=== PATIENT | female | born 1945 | race African-American/Black ===

== ENCOUNTER 2017-01-08 13:08 | Inpatient (IN) | payer MEDICARE, OTHER ==
[~2017-01-08] VITALS: Ht 172.7 cm; Wt 58.7 kg
[~2017-01-08 13:08] MED LIST: ALBU8.5H3 IH; AMIO200T PO; ATOR20TA86 PO; BUME1TAB30 PO; CARV3 PO; CHOL400T33 PO; FERR-89 PO; VALS80TA2 PO; WARF2 PO
[2017-01-08] MEDS ORDERED: BUMETANIDE 0.25 MG/ML 10 ML VIAL IVP ONE (13:45)
[2017-01-08 13:56] LABS: BASOPHILS % (AUTO) 0.1 % (0.0-2.0); EOSINOPHILS % (AUTO) 12.7 % (1.0-6.0); HEMATOCRIT 41.1 % (36-46); HEMOGLOBIN 12.9 g/dL (12.0-16.0); LYMPHOCYTES # (AUTO) 0.6 K/uL (1.0-4.8); LYMPHOCYTES % (AUTO) 8.9 % (22.0-44.0); MEAN CORPUSCULAR HEMOGLOBIN 28.1 pg (26.0-34.0); MEAN CORPUSCULAR HGB CONC 31.4 G/dL (31.0-37.0); MEAN CORPUSCULAR VOLUME 90 fL (80-100); MONOCYTES # (AUTO) 0.3 K/uL (0.1-1.0); MONOCYTES % (AUTO) 3.7 % (2.0-9.0); NEUTROPHILS # (AUTO) 5.2 K/uL (1.8-7.7); NEUTROPHILS % (AUTO) 74.6 % (40.0-70.0); PLATELET COUNT (AUTO) 164 K/uL (150-450); RED BLOOD CELL COUNT(AUTO) 4.59 MIL/uL (4.00-5.20); RED CELL DISTRIBUTION WIDTH 16.4 % (11.5-14.5)
[2017-01-08 14:06] LABS: CALCIUM, TOTAL 10.1 mg/dL (8.8-10.5); CREATININE 2.56 mg/dL (0.60-1.30)
[2017-01-08 14:12] LABS: ALBUMIN 3.5 g/dL (3.4-5.0); BILIRUBIN,TOTAL 0.6 mg/dL (0.1-1.0); TOTAL PROTEIN, SERUM 8.2 g/dL (6.4-8.2)
[2017-01-08 15:36] LABS: ADD UA MICROSCOPIC YES; APPEARANCE,URINE CLEAR (CLEAR); GLUCOSE, URINE (UA) NEGATIVE (NEGATIVE); KETONES,URINE NEGATIVE (NEGATIVE); LEUKOCYTE ESTERASE ,URINE NEGATIVE (NEGATIVE); OCCULT BLOOD,URINE SMALL (NEGATIVE); PH,URINE 5.5 (5.0-8.0); PROTEIN,URINE SEE CONFIRM (NEGATIVE)
[2017-01-08 15:39] LABS: SULFOSALICYLIC ACID,URINE 3+ (Negative)
[2017-01-08 15:40] LABS: SQUAMOUS EPITHELIAL CELL,UR Few /LPF (None Seen); WBC,URINE 0-2 /HPF (0-5)
[2017-01-08] MEDS ORDERED: ONDANSETRON HCL 4 MG/2 ML VIAL IVP PRN (15:45)
[2017-01-08] MEDS ORDERED: IPRATROPIUM BROMIDE 0.5 MG/2.5 ML NEB SOLUTION NEB ONE (15:45)
[2017-01-08] MEDS ORDERED: ACETAMINOPHEN 325 MG TABLET PO PRN ×2 (15:45→18:30)
[2017-01-08] MEDS ORDERED: ALBUTEROL SULFATE 2.5 MG/0.5 ML NEB SOLUTION NEB ONE (15:45)
[2017-01-08] MEDS ORDERED: 0.9% SODIUM CHLORIDE 10 ML SYRINGE IVP PRN (15:45)
[2017-01-08] MEDS ORDERED: OxyCODONE HCL/ACETAMINOPHEN 5-325 MG TABLET PO PRN (18:30)
[2017-01-08] MEDS ORDERED: ZOLPIDEM TARTRATE 5 MG TABLET PO PRN (18:30)
[2017-01-08 20:41] VITALS: BP 139/86
[2017-01-08] MEDS ORDERED: ALBUTEROL SULFATE HFA 90 MCG/PUFF 8 GM INHALER IH PRN (22:00)
[2017-01-08] MEDS ORDERED: INFLUENZA VIRUS VACCINE QVS 2016-17 (3YR+)/PF 60 MCG/0.5 ML SYRINGE IM ONE (22:15)
[2017-01-08 23:44] VITALS: BP 132/85
[2017-01-08] MEDS: HEPARIN SODIUM,PORCINE 5,000 UNITS/ML VIAL SQ SCH (23:59)
[2017-01-09 04:24] VITALS: BP 142/82
[2017-01-09 07:41] VITALS: BP 140/77
[2017-01-09] MEDS: VALSARTAN 80 MG TABLET PO SCH (09:56)
[2017-01-09] MEDS: AMIODARONE HCL 200 MG TABLET PO SCH (09:57)
[2017-01-09] MEDS: CHOLECALCIFEROL (VIT D3) 400 UNITS TABLET PO SCH (09:57)
[2017-01-09] MEDS: CARVEDILOL 3.125 MG TABLET PO SCH ×2 (09:57→21:16)
[2017-01-09] MEDS: PANTOPRAZOLE SODIUM 40 MG DR TABLET PO SCH (09:57)
[2017-01-09] MEDS: HEPARIN SODIUM,PORCINE 5,000 UNITS/ML VIAL SQ SCH ×3 (09:57→23:58)
[2017-01-09 11:12] VITALS: BP 124/70
[2017-01-09 15:51] VITALS: BP 109/60
[2017-01-09] MEDS: BUMETANIDE 0.25 MG/ML 4 ML VIAL IVP SCH ×2 (16:14→21:16)
[2017-01-09 18:00] VITALS: BP 139/77
[2017-01-09 19:40] VITALS: BP 133/87
[2017-01-09] MEDS: ATORVASTATIN CALCIUM 20 MG TABLET PO SCH (21:16)
[2017-01-10] VITALS (7 sets, daily range): BP systolic 106–142; BP diastolic 68–84
[2017-01-10 07:34] LABS: BASOPHILS # (AUTO) 0.02 K/uL (0.00-0.20); BASOPHILS % (AUTO) 0.4 % (0.0-2.0); EOSINOPHILS # (AUTO) 0.51 K/uL (0.00-0.70); EOSINOPHILS % (AUTO) 8.59 % (1.0-6.0); HEMATOCRIT 35.3 % (36-46); HEMOGLOBIN 11.4 g/dL (12.0-16.0); LYMPHOCYTES # (AUTO) 0.5 K/uL (1.0-4.8); LYMPHOCYTES % (AUTO) 7.6 % (22.0-44.0); MEAN CORPUSCULAR HEMOGLOBIN 29.1 pg (26.0-34.0); MEAN CORPUSCULAR HGB CONC 32.2 G/dL (31.0-37.0); MEAN CORPUSCULAR VOLUME 90 fL (80-100); MONOCYTES # (AUTO) 0.3 K/uL (0.1-1.0); MONOCYTES % (AUTO) 5.8 % (2.0-9.0); NEUTROPHILS # (AUTO) 4.6 K/uL (1.8-7.7); NEUTROPHILS % (AUTO) 77.6 % (40.0-70.0); PLATELET COUNT (AUTO) 144 K/uL (150-450); RED BLOOD CELL COUNT(AUTO) 3.91 MIL/uL (4.00-5.20); RED CELL DISTRIBUTION WIDTH 16.7 % (11.5-14.5); WHITE BLOOD COUNT (AUTO) 5.9 K/uL (4.5-11.0)
[2017-01-10 07:50] LABS: PROTHROMBIN TIME 21.4 SEC (9.4-11.6)
[2017-01-10 07:57] LABS: ALBUMIN 2.9 g/dL (3.4-5.0); BILIRUBIN,TOTAL 0.4 mg/dL (0.1-1.0); CALCIUM, TOTAL 9.5 mg/dL (8.8-10.5); CREATININE 2.72 mg/dL (0.60-1.30); POTASSIUM 4.6 mmol/L (3.5-5.1); TOTAL PROTEIN, SERUM 6.8 g/dL (6.4-8.2)
[2017-01-10] MEDS: BUMETANIDE 0.25 MG/ML 4 ML VIAL IVP SCH ×2 (09:45→20:50)
[2017-01-10] MEDS: HEPARIN SODIUM,PORCINE 5,000 UNITS/ML VIAL SQ SCH ×3 (09:45→23:16)
[2017-01-10] MEDS: AMIODARONE HCL 200 MG TABLET PO SCH (09:45)
[2017-01-10] MEDS: PANTOPRAZOLE SODIUM 40 MG DR TABLET PO SCH (09:46)
[2017-01-10] MEDS: CHOLECALCIFEROL (VIT D3) 400 UNITS TABLET PO SCH (09:46)
[2017-01-10] MEDS: CARVEDILOL 3.125 MG TABLET PO SCH ×2 (09:46→20:49)
[2017-01-10] MEDS: VALSARTAN 80 MG TABLET PO SCH (09:46)
[2017-01-10] MEDS: ATORVASTATIN CALCIUM 20 MG TABLET PO SCH (20:49)
[2017-01-11 04:09] VITALS: BP 136/74
[2017-01-11 07:06] LABS: CALCIUM, TOTAL 9.7 mg/dL (8.8-10.5); CREATININE 2.64 mg/dL (0.60-1.30); MAGNESIUM 2.2 mg/dL (1.80-2.40); PHOSPHORUS 2.9 mg/dL (2.5-4.9); POTASSIUM 4.5 mmol/L (3.5-5.1)
[2017-01-11 08:20] VITALS: BP 144/90
[2017-01-11] MEDS: PANTOPRAZOLE SODIUM 40 MG DR TABLET PO SCH (09:36)
[2017-01-11] MEDS: CHOLECALCIFEROL (VIT D3) 400 UNITS TABLET PO SCH (09:36)
[2017-01-11] MEDS: BUMETANIDE 0.25 MG/ML 4 ML VIAL IVP SCH ×2 (09:36→21:01)
[2017-01-11] MEDS: HEPARIN SODIUM,PORCINE 5,000 UNITS/ML VIAL SQ SCH ×2 (09:36→18:33)
[2017-01-11] MEDS: AMIODARONE HCL 200 MG TABLET PO SCH (09:37)
[2017-01-11] MEDS: VALSARTAN 80 MG TABLET PO SCH (09:37)
[2017-01-11] MEDS: CARVEDILOL 3.125 MG TABLET PO SCH ×2 (09:37→21:01)
[2017-01-11 11:41] VITALS: BP 108/53
[2017-01-11 15:17] VITALS: BP 95/62
[2017-01-11] MEDS ORDERED: OXYC-341 PO (20:00)
[2017-01-11] MEDS ORDERED: ZOLP5 PO (20:00)
[2017-01-11] MEDS ORDERED: PANT40TA25 PO (20:00)
[2017-01-11] MEDS ORDERED: ACET-2247 PO (20:00)
[2017-01-11 20:12] LABS: ABG A-A DIFF O2 36.1 mmHg (10-20.0); ABG BASE EXCESS 4.8 mmol/L (-2.0-3.0); ABG HCO3 27.9 mmol/L (22.0-26.0); ABG OXYHEMOGLOBIN 89.5 % (94.0-100.0); ABG PCO2 50 mmHg (35-45); ABG PH 7.394 (7.35-7.450); TEMPERATURE, FAHRENHEIT, BG 98.6 FAHREN (96.0-98.6)
[2017-01-11 20:13] LABS: ALLEN TEST, BLOOD GAS Positive
[2017-01-11 20:19] VITALS: BP 147/83
[2017-01-11] MEDS: ATORVASTATIN CALCIUM 20 MG TABLET PO SCH (21:01)
[2017-01-12] MEDS: HEPARIN SODIUM,PORCINE 5,000 UNITS/ML VIAL SQ SCH ×3 (00:21→15:56)
[2017-01-12 01:36] VITALS: BP 154/79
[2017-01-12 04:52] VITALS: BP 139/78
[2017-01-12 07:26] VITALS: BP 137/79
[2017-01-12 08:04] LABS: CALCIUM, TOTAL 9.4 mg/dL (8.8-10.5); CREATININE 2.44 mg/dL (0.60-1.30); MAGNESIUM 2.1 mg/dL (1.80-2.40); PHOSPHORUS 2.1 mg/dL (2.5-4.9); POTASSIUM 3.9 mmol/L (3.5-5.1)
[2017-01-12] MEDS: BUMETANIDE 0.25 MG/ML 4 ML VIAL IVP SCH (09:04)
[2017-01-12] MEDS: CARVEDILOL 3.125 MG TABLET PO SCH (09:04)
[2017-01-12] MEDS: AMIODARONE HCL 200 MG TABLET PO SCH (09:04)
[2017-01-12] MEDS: CHOLECALCIFEROL (VIT D3) 400 UNITS TABLET PO SCH (09:04)
[2017-01-12] MEDS: PANTOPRAZOLE SODIUM 40 MG DR TABLET PO SCH (09:04)
[2017-01-12] MEDS: VALSARTAN 80 MG TABLET PO SCH (09:05)
[2017-01-12 10:04] LABS: INR 1.6 (0.9-1.1); PROTHROMBIN TIME 17.3 SEC (9.4-11.6)
[2017-01-12 11:01] VITALS: BP 98/62
[2017-01-12 11:37] VITALS: BP 102/80
[2017-01-12 14:18] LABS: ABG A-A DIFF O2 27.4 mmHg (10-20.0); ABG BASE EXCESS 4.9 mmol/L (-2.0-3.0); ABG OXYHEMOGLOBIN 90.9 % (94.0-100.0); ABG PCO2 48 mmHg (35-45); ABG PH 7.407 (7.35-7.450); ALLEN TEST, BLOOD GAS Positive; TEMPERATURE, FAHRENHEIT, BG 98.6 FAHREN (96.0-98.6)
[2017-01-12 15:07] VITALS: BP 143/82
[2017-01-17 08:06] LABS: ALBUMIN URINE (ELP24) 44.8 %; ALPHA-1 URINE (ELP24) 2.7 %; BETA URINE(ELP24) 15.1 %; GAMMA URINE(ELP24) 26.5 %; TOTAL PROTEIN URINE 109.7 mg/dL (Not Estab.)
== END 2017-01-12 19:00 | disposition home or self-care (01) | DRG 291 ==
LOC: EMS 13:11 → 5S 19:37
PROVIDERS: ADMIT Hospitalist; ATTEND Hospitalist
PROC: 3E0234Z Introduction of Serum, Toxoid and Vaccine into Muscle, Percutaneous Approach (ICD-10-PCS; principal; 2017-01-09)
DX: I13.0 Hypertensive heart and chronic kidney disease with heart failure and stage 1 through stage 4 chronic kidney disease, or unspecified chronic kidney disease (principal); I50.23 Acute on chronic systolic (congestive) heart failure; N18.4 Chronic kidney disease, stage 4 (severe); J44.0 Chronic obstructive pulmonary disease with (acute) lower respiratory infection; E44.1 Mild protein-calorie malnutrition; Z68.1 Body mass index [BMI] 19.9 or less, adult; I42.0 Dilated cardiomyopathy; J44.9 Chronic obstructive pulmonary disease, unspecified; I25.5 Ischemic cardiomyopathy; R80.9 Proteinuria, unspecified; D64.9 Anemia, unspecified; I25.119 Atherosclerotic heart disease of native coronary artery with unspecified angina pectoris; I48.0 Paroxysmal atrial fibrillation; I48.2 Chronic atrial fibrillation; Z79.899 Other long term (current) drug therapy; Z79.01 Long term (current) use of anticoagulants; Z23 Encounter for immunization; I25.2 Old myocardial infarction; Z95.5 Presence of coronary angioplasty implant and graft; Z95.810 Presence of automatic (implantable) cardiac defibrillator; Z99.81 Dependence on supplemental oxygen; Z90.2 Acquired absence of lung [part of]; Z86.11 Personal history of tuberculosis; Z90.710 Acquired absence of both cervix and uterus; Z98.890 Other specified postprocedural states; Z82.49 Family history of ischemic heart disease and other diseases of the circulatory system
CPT/HCPCS: 81050; 82575; 82805; 83735; 84100; 84156; 84166; 84300; 84540; 90471; 93005; 93306; 94644; 96374; 99291; J1644; J3490

== ENCOUNTER 2017-02-12 13:34 | Inpatient (IN) | payer MEDICARE, OTHER ==
[~2017-02-12] VITALS: Ht 172.7 cm; Wt 56.0 kg
[~2017-02-12 13:34] MED LIST changes: +ACET-2247 PO; -FERR-89 PO; +FERS325 PO; +OXYC-341 PO; +PANT40TA25 PO; +ZOLP5 PO
[2017-02-12 14:59] LABS: BASOPHILS % (AUTO) 0.3 % (0.0-2.0); HEMATOCRIT 40.4 % (36-46); HEMOGLOBIN 12.6 g/dL (12.0-16.0); LYMPHOCYTES # (AUTO) 0.4 K/uL (1.0-4.8); LYMPHOCYTES % (AUTO) 7.3 % (22.0-44.0); MEAN CORPUSCULAR HEMOGLOBIN 28.1 pg (26.0-34.0); MEAN CORPUSCULAR HGB CONC 31.2 G/dL (31.0-37.0); MEAN CORPUSCULAR VOLUME 90 fL (80-100); MONOCYTES # (AUTO) 0.2 K/uL (0.1-1.0); MONOCYTES % (AUTO) 3.9 % (2.0-9.0); NEUTROPHILS # (AUTO) 4.1 K/uL (1.8-7.7); NEUTROPHILS % (AUTO) 70.4 % (40.0-70.0); PLATELET COUNT (AUTO) 174 K/uL (150-450); RED BLOOD CELL COUNT(AUTO) 4.47 MIL/uL (4.00-5.20); RED CELL DISTRIBUTION WIDTH 16.6 % (11.5-14.5); WHITE BLOOD COUNT (AUTO) 5.9 K/uL (4.5-11.0)
[2017-02-12 15:06] LABS: EOSINOPHILS % (AUTO) 18.1 % (1.0-6.0)
[2017-02-12 15:10] LABS: INR 3.3 (0.9-1.1)
[2017-02-12 15:15] LABS: ANION GAP 7 mmol/L (8-16); CALCIUM, TOTAL 9.9 mg/dL (8.8-10.5); CARBON DIOXIDE 33 mmol/L (22-29); CHLORIDE 104 mmol/L (98-107); CREATININE 2.62 mg/dL (0.60-1.30); GLOMERULAR FILTR. RATE CALC 22 mL/min (>60); POTASSIUM 4.5 mmol/L (3.5-5.1); SODIUM SERUM 144 mmol/L (136-145); UREA NITROGEN, BLOOD 35 mg/dL (7-18)
[2017-02-12 15:21] LABS: ALANINE AMINOTRANSFERASE 30 U/L (12-78); ALBUMIN 3.2 g/dL (3.4-5.0); ASPARTATE AMINOTRANSFERASE 24 U/L (15-37); BILIRUBIN,TOTAL 0.8 mg/dL (0.1-1.0); CREATINE KINASE, TOTAL 75 U/L (26-192); TOTAL PROTEIN, SERUM 7.8 g/dL (6.4-8.2)
[2017-02-12 16:03] LABS: B-TYPE NATRIURETIC PEPTIDE 1630 pg/mL (0-100)
[2017-02-12] MEDS ORDERED: IPRATROPIUM BROMIDE 0.5 MG/2.5 ML NEB SOLUTION NEB ONE (16:15)
[2017-02-12] MEDS ORDERED: FUROSEMIDE 40 MG/4 ML VIAL IVP ONE (16:15)
[2017-02-12] MEDS ORDERED: NITROGLYCERIN 2% (1 GM=INCH) PACKET TP ONE (16:15)
[2017-02-12] MEDS ORDERED: ALBUTEROL SULFATE 2.5 MG/0.5 ML NEB SOLUTION NEB ONE (16:15)
[2017-02-12 16:48] LABS: BAND NEUTROPHILS % (MANUAL) 9 % (1-5); EOSINOPHILS % (MANUAL) 2 % (1-6); LYMPHOCYTES % (MANUAL) 8 % (22-44); RBC MORPHOLOGY COMMENT NORMAL RBC MORPH; TOTAL CELLS COUNTED 100
[2017-02-12] MEDS ORDERED: ACETAMINOPHEN 325 MG TABLET PO PRN (17:15)
[2017-02-12] MEDS ORDERED: ONDANSETRON HCL 4 MG/2 ML VIAL IVP PRN (17:15)
[2017-02-12] MEDS ORDERED: 0.9% SODIUM CHLORIDE 10 ML SYRINGE IVP PRN (17:15)
[2017-02-12 17:29] LABS: APPEARANCE,URINE CLEAR (CLEAR); GLUCOSE, URINE (UA) NEGATIVE (NEGATIVE); KETONES,URINE NEGATIVE (NEGATIVE); LEUKOCYTE ESTERASE ,URINE NEGATIVE (NEGATIVE); OCCULT BLOOD,URINE TRACE (NEGATIVE); PROTEIN,URINE POS 1+ (NEGATIVE)
[2017-02-12 17:33] LABS: ADD UA MICROSCOPIC YES; SQUAMOUS EPITHELIAL CELL,UR Few /LPF (None Seen); WBC,URINE 0-2 /HPF (0-5)
[2017-02-12 17:52] LABS: CREATINE KINASE MB 1.4 ng/mL (0-5)
[2017-02-12] MEDS: ALBUTEROL SULFATE 2.5 MG/0.5 ML NEB SOLUTION NEB SCH (19:19)
[2017-02-12] MEDS: IPRATROPIUM BROMIDE 0.5 MG/2.5 ML NEB SOLUTION NEB SCH (19:19)
[2017-02-12 20:49] VITALS: BP 153/89
[2017-02-13] VITALS (7 sets, daily range): BP systolic 94–117; BP diastolic 51–70
[2017-02-13] MEDS: IPRATROPIUM BROMIDE 0.5 MG/2.5 ML NEB SOLUTION NEB SCH ×2 (00:19→04:03)
[2017-02-13] MEDS: ALBUTEROL SULFATE 2.5 MG/0.5 ML NEB SOLUTION NEB SCH ×2 (00:20→04:04)
[2017-02-13 06:22] LABS: BASOPHILS % (AUTO) 0.5 % (0.0-2.0); HEMATOCRIT 37.2 % (36-46); HEMOGLOBIN 11.6 g/dL (12.0-16.0); LYMPHOCYTES # (AUTO) 0.6 K/uL (1.0-4.8); LYMPHOCYTES % (AUTO) 10.1 % (22.0-44.0); MEAN CORPUSCULAR HEMOGLOBIN 28.3 pg (26.0-34.0); MEAN CORPUSCULAR HGB CONC 31.1 G/dL (31.0-37.0); MEAN CORPUSCULAR VOLUME 91 fL (80-100); MONOCYTES # (AUTO) 0.6 K/uL (0.1-1.0); MONOCYTES % (AUTO) 9.5 % (2.0-9.0); NEUTROPHILS # (AUTO) 3.4 K/uL (1.8-7.7); NEUTROPHILS % (AUTO) 58.7 % (40.0-70.0); PLATELET COUNT (AUTO) 162 K/uL (150-450); RED BLOOD CELL COUNT(AUTO) 4.09 MIL/uL (4.00-5.20); RED CELL DISTRIBUTION WIDTH 16.2 % (11.5-14.5); WHITE BLOOD COUNT (AUTO) 5.8 K/uL (4.5-11.0)
[2017-02-13 06:46] LABS: ALBUMIN 2.8 g/dL (3.4-5.0); BILIRUBIN,TOTAL 0.4 mg/dL (0.1-1.0); CALCIUM, TOTAL 9.4 mg/dL (8.8-10.5); CREATININE 2.67 mg/dL (0.60-1.30); POTASSIUM 4.3 mmol/L (3.5-5.1); TOTAL PROTEIN, SERUM 6.9 g/dL (6.4-8.2)
[2017-02-13 06:49] LABS: EOSINOPHILS % (AUTO) 21.2 % (1.0-6.0)
[2017-02-13] MEDS ORDERED: ALBUTEROL SULFATE HFA 90 MCG/PUFF 8 GM INHALER IH PRN ×2 (07:00→23:17)
[2017-02-13] MEDS ORDERED: ACETAMINOPHEN 325 MG TABLET PO PRN (07:00)
[2017-02-13] MEDS ORDERED: ZOLPIDEM TARTRATE 5 MG TABLET PO PRN (07:00)
[2017-02-13] MEDS: FERROUS SULFATE 325 MG EC TABLET PO SCH ×2 (08:44→18:10)
[2017-02-13] MEDS: WARFARIN SODIUM 2 MG TABLET PO SCH (08:44)
[2017-02-13] MEDS: CARVEDILOL 3.125 MG TABLET PO SCH ×2 (08:44→21:25)
[2017-02-13] MEDS: AMIODARONE HCL 200 MG TABLET PO SCH (08:45)
[2017-02-13] MEDS: PANTOPRAZOLE SODIUM 40 MG DR TABLET PO SCH (08:45)
[2017-02-13] MEDS: CHOLECALCIFEROL (VIT D3) 400 UNITS TABLET PO SCH (08:45)
[2017-02-13] MEDS: VALSARTAN 80 MG TABLET PO SCH (08:51)
[2017-02-13] MEDS ORDERED: FUROSEMIDE 20 MG/2 ML VIAL IVP SCH (09:00)
[2017-02-13] MEDS: ONDANSETRON HCL 4 MG/2 ML VIAL IVP PRN (20:09)
[2017-02-13] MEDS: ATORVASTATIN CALCIUM 20 MG TABLET PO SCH (21:25)
[2017-02-14] VITALS (7 sets, daily range): BP systolic 93–131; BP diastolic 51–69
[2017-02-14 06:56] LABS: BASOPHILS % (AUTO) 0.1 % (0.0-2.0); EOSINOPHILS # (AUTO) 0.19 K/uL (0.00-0.70); EOSINOPHILS % (AUTO) 3.06 % (1.0-6.0); HEMATOCRIT 34.7 % (36-46); HEMOGLOBIN 11.2 g/dL (12.0-16.0); LYMPHOCYTES # (AUTO) 0.5 K/uL (1.0-4.8); LYMPHOCYTES % (AUTO) 8.1 % (22.0-44.0); MEAN CORPUSCULAR HEMOGLOBIN 29.2 pg (26.0-34.0); MEAN CORPUSCULAR HGB CONC 32.4 G/dL (31.0-37.0); MEAN CORPUSCULAR VOLUME 90 fL (80-100); MONOCYTES # (AUTO) 0.4 K/uL (0.1-1.0); MONOCYTES % (AUTO) 6.4 % (2.0-9.0); NEUTROPHILS % (AUTO) 82.4 % (40.0-70.0); PLATELET COUNT (AUTO) 158 K/uL (150-450); RED BLOOD CELL COUNT(AUTO) 3.85 MIL/uL (4.00-5.20); RED CELL DISTRIBUTION WIDTH 15.9 % (11.5-14.5); WHITE BLOOD COUNT (AUTO) 6.1 K/uL (4.5-11.0)
[2017-02-14 07:08] LABS: CALCIUM, TOTAL 9.1 mg/dL (8.8-10.5); CREATININE 2.86 mg/dL (0.60-1.30)
[2017-02-14] MEDS: CARVEDILOL 3.125 MG TABLET PO SCH ×2 (09:00→21:10)
[2017-02-14] MEDS: VALSARTAN 80 MG TABLET PO SCH (09:00)
[2017-02-14] MEDS: AMIODARONE HCL 200 MG TABLET PO SCH (09:00)
[2017-02-14] MEDS: FERROUS SULFATE 325 MG EC TABLET PO SCH ×2 (10:37→18:09)
[2017-02-14] MEDS: WARFARIN SODIUM 2 MG TABLET PO SCH (10:37)
[2017-02-14] MEDS: PANTOPRAZOLE SODIUM 40 MG DR TABLET PO SCH (10:38)
[2017-02-14] MEDS: CHOLECALCIFEROL (VIT D3) 400 UNITS TABLET PO SCH (10:38)
[2017-02-14] MEDS: ONDANSETRON HCL 4 MG/2 ML VIAL IVP PRN (16:47)
[2017-02-14] MEDS: ATORVASTATIN CALCIUM 20 MG TABLET PO SCH (21:10)
[2017-02-15 04:32] VITALS: BP 105/61
[2017-02-15 06:48] LABS: CALCIUM, TOTAL 9.3 mg/dL (8.8-10.5); CREATININE 2.69 mg/dL (0.60-1.30); MAGNESIUM 2.5 mg/dL (1.80-2.40); POTASSIUM 5.3 mmol/L (3.5-5.1)
[2017-02-15 07:55] VITALS: BP 114/64
[2017-02-15] MEDS: FERROUS SULFATE 325 MG EC TABLET PO SCH (08:48)
[2017-02-15] MEDS: CARVEDILOL 3.125 MG TABLET PO SCH (08:48)
[2017-02-15] MEDS: WARFARIN SODIUM 2 MG TABLET PO SCH (08:48)
[2017-02-15] MEDS: AMIODARONE HCL 200 MG TABLET PO SCH (08:48)
[2017-02-15] MEDS: CHOLECALCIFEROL (VIT D3) 400 UNITS TABLET PO SCH (08:48)
[2017-02-15] MEDS: VALSARTAN 80 MG TABLET PO SCH (08:48)
[2017-02-15] MEDS: PANTOPRAZOLE SODIUM 40 MG DR TABLET PO SCH (08:56)
[2017-02-15 11:06] VITALS: BP 111/73
[2017-02-15 15:18] VITALS: BP 130/75
== END 2017-02-15 17:30 | disposition home or self-care (01) | DRG 291 ==
LOC: EMS 13:39 → 5N 19:43
PROVIDERS: ADMIT Family Medicine; ATTEND Family Medicine
DX: I13.0 Hypertensive heart and chronic kidney disease with heart failure and stage 1 through stage 4 chronic kidney disease, or unspecified chronic kidney disease (principal); I50.23 Acute on chronic systolic (congestive) heart failure; N18.4 Chronic kidney disease, stage 4 (severe); N17.9 Acute kidney failure, unspecified; E78.5 Hyperlipidemia, unspecified; I25.10 Atherosclerotic heart disease of native coronary artery without angina pectoris; I25.2 Old myocardial infarction; I44.0 Atrioventricular block, first degree; D64.9 Anemia, unspecified; M19.90 Unspecified osteoarthritis, unspecified site; I25.5 Ischemic cardiomyopathy; I48.91 Unspecified atrial fibrillation; J44.9 Chronic obstructive pulmonary disease, unspecified; Z90.2 Acquired absence of lung [part of]; Z79.01 Long term (current) use of anticoagulants; Z95.810 Presence of automatic (implantable) cardiac defibrillator; Z79.899 Other long term (current) drug therapy; Z95.5 Presence of coronary angioplasty implant and graft; Z86.11 Personal history of tuberculosis; Z90.710 Acquired absence of both cervix and uterus
CPT/HCPCS: 83735; 85007; 87040; 93005; 94640; 96374; 99291; J1940; J2405

== ENCOUNTER 2017-04-14 14:56 | Emergency (ER) | payer MEDICARE, OTHER ==
[~2017-04-14] VITALS: Ht 172.7 cm; Wt 63.5 kg
[~2017-04-14 14:56] MED LIST changes: -BUME1TAB30 PO; +FERR-89 PO; -FERS325 PO; -OXYC-341 PO
[2017-04-14 15:00] VITALS: BP 141/91
== END 2017-04-14 16:55 | disposition home or self-care (01) ==
LOC: EMS 14:57
DX: R09.89 Other specified symptoms and signs involving the circulatory and respiratory systems (principal); I50.9 Heart failure, unspecified; I25.2 Old myocardial infarction; Z79.01 Long term (current) use of anticoagulants; Z95.5 Presence of coronary angioplasty implant and graft; Z95.810 Presence of automatic (implantable) cardiac defibrillator
CPT/HCPCS: 99281

== ENCOUNTER 2017-06-01 03:43 | Emergency (ER) | payer MEDICARE, OTHER ==
[~2017-06-01] VITALS: Ht 174 cm; Wt 60.5 kg
[2017-06-01] MEDS ORDERED: BUME1TAB30 PO (03:59)
[2017-06-01 04:35] LABS: BASOPHILS # (AUTO) 0.02 K/uL (0.00-0.20); BASOPHILS % (AUTO) 0.5 % (0.0-2.0); EOSINOPHILS # (AUTO) 0.19 K/uL (0.00-0.70); EOSINOPHILS % (AUTO) 4.91 % (1.0-6.0); HEMATOCRIT 37.3 % (36-46); HEMOGLOBIN 11.9 g/dL (12.0-16.0); LYMPHOCYTES # (AUTO) 0.6 K/uL (1.0-4.8); LYMPHOCYTES % (AUTO) 15.3 % (22.0-44.0); MEAN CORPUSCULAR HEMOGLOBIN 28.7 pg (26.0-34.0); MEAN CORPUSCULAR HGB CONC 31.8 G/dL (31.0-37.0); MEAN CORPUSCULAR VOLUME 90 fL (80-100); MONOCYTES # (AUTO) 0.4 K/uL (0.1-1.0); MONOCYTES % (AUTO) 10.4 % (2.0-9.0); NEUTROPHILS # (AUTO) 2.7 K/uL (1.8-7.7); NEUTROPHILS % (AUTO) 68.9 % (40.0-70.0); PLATELET COUNT (AUTO) 159 K/uL (150-450); RED BLOOD CELL COUNT(AUTO) 4.13 MIL/uL (4.00-5.20); RED CELL DISTRIBUTION WIDTH 15.7 % (11.5-14.5); WHITE BLOOD COUNT (AUTO) 3.9 K/uL (4.5-11.0)
[2017-06-01 04:45] LABS: CALCIUM, TOTAL 9.9 mg/dL (8.8-10.5); CREATININE 2.67 mg/dL (0.60-1.30); POTASSIUM 4.3 mmol/L (3.5-5.1)
[2017-06-01 04:50] VITALS: BP 141/90
[2017-06-01 04:52] LABS: ALBUMIN 3.3 g/dL (3.4-5.0); BILIRUBIN,TOTAL 0.5 mg/dL (0.1-1.0); TOTAL PROTEIN, SERUM 7.2 g/dL (6.4-8.2)
== END 2017-06-01 05:36 | disposition home or self-care (01) ==
LOC: EMS 03:44
DX: R60.0 Localized edema (principal); I11.0 Hypertensive heart disease with heart failure; I50.9 Heart failure, unspecified; I25.2 Old myocardial infarction; I12.9 Hypertensive chronic kidney disease with stage 1 through stage 4 chronic kidney disease, or unspecified chronic kidney disease; N18.9 Chronic kidney disease, unspecified
CPT/HCPCS: 99284

== ENCOUNTER 2017-08-06 23:10 | Inpatient (IN) | payer MEDICARE, OTHER ==
[~2017-08-06] VITALS: Ht 172.7 cm; Wt 58.7 kg
[~2017-08-06 23:10] MED LIST changes: +AMOX-429 PO; +AMOX1TAB16 PO; +BUME1TAB17 PO; -FERR-89 PO; +METO-408 PO; -PANT40TA25 PO
[2017-08-06] MEDS ORDERED: TIOT4MIS2 IH (23:19)
[2017-08-06] MEDS ORDERED: DOXY100C PO (23:19)
[2017-08-07] MEDS ORDERED: NITROGLYCERIN 2% (1 GM=INCH) PACKET TP ONE
[2017-08-07] MEDS ORDERED: ASPIRIN 81 MG CHEWABLE TABLET PO ONE
[2017-08-07] MEDS ORDERED: 0.9% SODIUM CHLORIDE 5 ML NEB SOLUTION NEB ONE (00:41)
[2017-08-07 00:42] LABS: BASOPHILS % (AUTO) 0.3 % (0.0-2.0); EOSINOPHILS % (AUTO) 1.1 % (1.0-6.0); HEMATOCRIT 36.2 % (36-46); HEMOGLOBIN 11.9 g/dL (12.0-16.0); LYMPHOCYTES # (AUTO) 0.7 K/uL (1.0-4.8); MEAN CORPUSCULAR HGB CONC 32.8 G/dL (31.0-37.0); MEAN CORPUSCULAR VOLUME 88 fL (80-100); MONOCYTES # (AUTO) 0.6 K/uL (0.1-1.0); MONOCYTES % (AUTO) 12.6 % (2.0-9.0); NEUTROPHILS # (AUTO) 3.2 K/uL (1.8-7.7); PLATELET COUNT (AUTO) 127 K/uL (150-450); RED BLOOD CELL COUNT(AUTO) 4.09 MIL/uL (4.00-5.20); RED CELL DISTRIBUTION WIDTH 16.8 % (11.5-14.5); WHITE BLOOD COUNT (AUTO) 4.6 K/uL (4.5-11.0)
[2017-08-07] MEDS ORDERED: ALBUTEROL SULFATE 5 MG/ML 20 ML NEB SOLN [BULK] NEB ONE (00:45)
[2017-08-07] MEDS ORDERED: ALBUTEROL SULFATE 2.5 MG/0.5 ML NEB SOLUTION NEB ONE (00:45)
[2017-08-07] MEDS ORDERED: IPRATROPIUM BROMIDE 0.5 MG/2.5 ML NEB SOLUTION NEB ONE (00:45)
[2017-08-07 00:55] LABS: ANION GAP 9 mmol/L (8-16); CALCIUM, TOTAL 9.8 mg/dL (8.8-10.5); CARBON DIOXIDE 28 mmol/L (22-29); CHLORIDE 105 mmol/L (98-107); CREATININE 2.53 mg/dL (0.60-1.30); GLOMERULAR FILTR. RATE CALC 23 mL/min (>60); POTASSIUM 5.5 mmol/L (3.5-5.1); SODIUM SERUM 142 mmol/L (136-145); UREA NITROGEN, BLOOD 43 mg/dL (7-18)
[2017-08-07 01:10] LABS: B-TYPE NATRIURETIC PEPTIDE 1840 pg/mL (0-100); INR 1.5 (0.9-1.1); PROTHROMBIN TIME 15.4 SEC (9.4-11.6)
[2017-08-07 01:12] LABS: APPEARANCE,URINE CLEAR (CLEAR); GLUCOSE, URINE (UA) NEGATIVE (NEGATIVE); KETONES,URINE NEGATIVE (NEGATIVE); LEUKOCYTE ESTERASE ,URINE NEGATIVE (NEGATIVE); OCCULT BLOOD,URINE SMALL (NEGATIVE); PROTEIN,URINE SEE CONFIRM (NEGATIVE)
[2017-08-07 01:13] LABS: ADD UA MICROSCOPIC YES
[2017-08-07] MEDS ORDERED: BUMETANIDE 0.25 MG/ML 4 ML VIAL IVP ONE (01:15)
[2017-08-07 01:20] LABS: ALANINE AMINOTRANSFERASE 42 U/L (12-78); ASPARTATE AMINOTRANSFERASE 47 U/L (15-37); BILIRUBIN,TOTAL 0.7 mg/dL (0.1-1.0); CREATINE KINASE, TOTAL 122 U/L (26-192); TOTAL PROTEIN, SERUM 7.9 g/dL (6.4-8.2)
[2017-08-07 01:22] LABS: CREATINE KINASE MB < 0.5 ng/mL (0-5)
[2017-08-07 01:27] LABS: SQUAMOUS EPITHELIAL CELL,UR Rare /LPF (None Seen); SULFOSALICYLIC ACID,URINE 3+ (Negative); WBC,URINE 0-2 /HPF (0-5)
[2017-08-07 01:36] LABS: ALBUMIN 3.5 g/dL (3.4-5.0)
[2017-08-07] MEDS ORDERED: ACETAMINOPHEN 325 MG TABLET PO PRN (03:15)
[2017-08-07] MEDS ORDERED: 0.9% SODIUM CHLORIDE 10 ML SYRINGE IVP PRN (03:15)
[2017-08-07 03:27] VITALS: BP 153/88
[2017-08-07 07:12] VITALS: BP 103/51
[2017-08-07] MEDS: ALBUTEROL SULFATE 2.5 MG/0.5 ML NEB SOLUTION NEB SCH ×2 (07:59→13:58)
[2017-08-07] MEDS: IPRATROPIUM BROMIDE 0.5 MG/2.5 ML NEB SOLUTION NEB SCH ×2 (07:59→13:58)
[2017-08-07] MEDS ORDERED: VALSARTAN 80 MG TABLET PO SCH (09:00)
[2017-08-07] MEDS ORDERED: ALBUTEROL SULFATE HFA 90 MCG/PUFF 8 GM INHALER IH PRN (09:00)
[2017-08-07] MEDS: BUMETANIDE 1 MG TABLET PO SCH ×2 (10:32→17:38)
[2017-08-07] MEDS: CHOLECALCIFEROL (VIT D3) 400 UNITS TABLET PO SCH (10:32)
[2017-08-07] MEDS: METOPROLOL SUCCINATE 25 MG ER TABLET PO SCH (10:33)
[2017-08-07 11:33] VITALS: BP 117/61
[2017-08-07] MEDS: CARVEDILOL 3.125 MG TABLET PO SCH ×2 (12:44→20:03)
[2017-08-07] MEDS: AMIODARONE HCL 200 MG TABLET PO SCH (12:44)
[2017-08-07 15:15] VITALS: BP 129/66
[2017-08-07] MEDS ORDERED: EPINEPHrine 1:10,000 [1 MG/10 ML] SYRINGE IVP ONE (17:00)
[2017-08-07] MEDS: WARFARIN SODIUM 2 MG TABLET PO SCH (17:38)
[2017-08-07] MEDS ORDERED: SODIUM POLYSTYRENE SULFONATE 15 GM/60 ML SUSPENSION BOTTLE PO ONE (18:30)
[2017-08-07] MEDS ORDERED: WARFARIN SODIUM 2 MG TABLET PO ONE (18:30)
[2017-08-07 19:51] VITALS: BP 119/70
[2017-08-07] MEDS: ATORVASTATIN CALCIUM 20 MG TABLET PO SCH (20:03)
[2017-08-07] MEDS: BUMETANIDE 0.25 MG/ML 4 ML VIAL IVP SCH (20:08)
[2017-08-07 23:40] VITALS: BP 140/86
[2017-08-08 02:30] VITALS: BP 116/64
[2017-08-08 02:56] LABS: ABG A-A DIFF O2 156.7 mmHg (10-20.0); ABG BASE EXCESS -1.6 mmol/L (-2.0-3.0); ABG HCO3 23.2 mmol/L (22.0-26.0); ABG PCO2 42 mmHg (35-45); ABG PH 7.372 (7.35-7.450); ALLEN TEST, BLOOD GAS Positive; TEMPERATURE, FAHRENHEIT, BG 98.6 FAHREN (96.0-98.6)
[2017-08-08 03:17] LABS: GLUCOSE,POINT OF CARE 242 MG/DL (70-110)
[2017-08-08] MEDS: PROPOFOL 1000 MG/ISO-OSM 100 ML IV PRN (03:46)
[2017-08-08 04:00] VITALS: BP 139/83
[2017-08-08 04:17] LABS: BASOPHILS # (AUTO) 0.03 K/uL (0.00-0.20); BASOPHILS % (AUTO) 0.3 % (0.0-2.0); EOSINOPHILS # (AUTO) 0.01 K/uL (0.00-0.70); EOSINOPHILS % (AUTO) 0.07 % (1.0-6.0); HEMATOCRIT 36.8 % (36-46); HEMOGLOBIN 11.7 g/dL (12.0-16.0); LYMPHOCYTES # (AUTO) 0.5 K/uL (1.0-4.8); LYMPHOCYTES % (AUTO) 4.7 % (22.0-44.0); MEAN CORPUSCULAR HEMOGLOBIN 28.8 pg (26.0-34.0); MEAN CORPUSCULAR HGB CONC 31.8 G/dL (31.0-37.0); MEAN CORPUSCULAR VOLUME 90 fL (80-100); MONOCYTES # (AUTO) 0.6 K/uL (0.1-1.0); MONOCYTES % (AUTO) 5.3 % (2.0-9.0); NEUTROPHILS # (AUTO) 9.9 K/uL (1.8-7.7); PLATELET COUNT (AUTO) 109 K/uL (150-450); RED BLOOD CELL COUNT(AUTO) 4.07 MIL/uL (4.00-5.20); RED CELL DISTRIBUTION WIDTH 17.2 % (11.5-14.5)
[2017-08-08 04:18] LABS: NEUTROPHILS % (AUTO) 89.7 % (40.0-70.0)
[2017-08-08 04:50] LABS: ALANINE AMINOTRANSFERASE 191 U/L (12-78); ANION GAP 12 mmol/L (8-16); ASPARTATE AMINOTRANSFERASE 290 U/L (15-37); BILIRUBIN,TOTAL 0.7 mg/dL (0.1-1.0); CALCIUM, TOTAL 9.3 mg/dL (8.8-10.5); CARBON DIOXIDE 29 mmol/L (22-29); CHLORIDE 106 mmol/L (98-107); CREATINE KINASE MB 1.8 ng/mL (0-5); CREATINE KINASE, TOTAL 117 U/L (26-192); CREATININE 2.94 mg/dL (0.60-1.30); GLOMERULAR FILTR. RATE CALC 19 mL/min (>60); POTASSIUM 4.6 mmol/L (3.5-5.1); SODIUM SERUM 147 mmol/L (136-145); TOTAL PROTEIN, SERUM 7.4 g/dL (6.4-8.2); UREA NITROGEN, BLOOD 43 mg/dL (7-18)
[2017-08-08 08:00] VITALS: BP 172/96
[2017-08-08] MEDS: CARVEDILOL 3.125 MG TABLET PO SCH ×2 (09:18→20:58)
[2017-08-08] MEDS: AMIODARONE HCL 200 MG TABLET PO SCH (09:18)
[2017-08-08] MEDS: BUMETANIDE 0.25 MG/ML 4 ML VIAL IVP SCH ×2 (09:18→20:58)
[2017-08-08] MEDS: METOPROLOL SUCCINATE 25 MG ER TABLET PO SCH (09:19)
[2017-08-08] MEDS ORDERED: TIOTROPIUM BROMIDE 18 MCG/INH HANDIHALER [5] IH SCH (10:00)
[2017-08-08] MEDS: CHOLECALCIFEROL (VIT D3) 400 UNITS TABLET PO SCH (10:49)
[2017-08-08 12:00] VITALS: BP 137/87
[2017-08-08 12:04] LABS: CREATINE KINASE MB 2.2 ng/mL (0-5); CREATINE KINASE, TOTAL 232 U/L (26-192)
[2017-08-08] MEDS: FentaNYL CITRATE PF 500 MCG in DEXTROSE 5%-WATER 90 ML IV PRN (15:09)
[2017-08-08] MEDS: HydrALAZINE HCL 20 MG/ML VIAL IVP PRN (15:09)
[2017-08-08 16:00] VITALS: BP 144/71
[2017-08-08] MEDS: WARFARIN SODIUM 2 MG TABLET PO SCH (17:31)
[2017-08-08 20:00] VITALS: BP 150/72
[2017-08-08 20:16] LABS: CREATINE KINASE MB 0.9 ng/mL (0-5); CREATINE KINASE, TOTAL 315 U/L (26-192)
[2017-08-08] MEDS: ATORVASTATIN CALCIUM 20 MG TABLET PO SCH (20:58)
[2017-08-09] VITALS: BP 128/61
[2017-08-09] MEDS: PROPOFOL 1000 MG/ISO-OSM 100 ML IV PRN (02:12)
[2017-08-09] MEDS: FentaNYL CITRATE PF 500 MCG in DEXTROSE 5%-WATER 90 ML IV PRN ×2 (03:48→16:11)
[2017-08-09 04:00] VITALS: BP 107/68
[2017-08-09 05:48] LABS: TOTAL PROTEIN, SERUM 6.7 g/dL (6.4-8.2)
[2017-08-09 05:54] LABS: MAGNESIUM 1.9 mg/dL (1.80-2.40)
[2017-08-09 06:24] LABS: BASOPHILS % (AUTO) 0.1 % (0.0-2.0); EOSINOPHILS % (AUTO) 0.2 % (1.0-6.0); HEMATOCRIT 36.1 % (36-46); HEMOGLOBIN 11.9 g/dL (12.0-16.0); LYMPHOCYTES # (AUTO) 0.7 K/uL (1.0-4.8); LYMPHOCYTES % (AUTO) 9.7 % (22.0-44.0); MEAN CORPUSCULAR HEMOGLOBIN 29.2 pg (26.0-34.0); MEAN CORPUSCULAR HGB CONC 32.9 G/dL (31.0-37.0); MEAN CORPUSCULAR VOLUME 89 fL (80-100); MONOCYTES # (AUTO) 0.9 K/uL (0.1-1.0); MONOCYTES % (AUTO) 12.4 % (2.0-9.0); NEUTROPHILS # (AUTO) 5.9 K/uL (1.8-7.7); NEUTROPHILS % (AUTO) 77.6 % (40.0-70.0); PLATELET COUNT (AUTO) 134 K/uL (150-450); RED BLOOD CELL COUNT(AUTO) 4.06 MIL/uL (4.00-5.20); RED CELL DISTRIBUTION WIDTH 16.3 % (11.5-14.5); WHITE BLOOD COUNT (AUTO) 7.6 K/uL (4.5-11.0)
[2017-08-09 06:44] LABS: CALCIUM, TOTAL 8.9 mg/dL (8.8-10.5)
[2017-08-09 06:46] LABS: ALBUMIN 2.5 g/dL (3.4-5.0); CREATININE 2.77 mg/dL (0.60-1.30); PHOSPHORUS 2.9 mg/dL (2.5-4.9)
[2017-08-09 07:08] LABS: POTASSIUM 2.7 mmol/L (3.5-5.1)
[2017-08-09] MEDS ORDERED: POTASSIUM CHLORIDE 10% 40 MEQ/30 ML LIQUID UDCUP NG PRN (07:45)
[2017-08-09] MEDS ORDERED: POTASSIUM CHLORIDE 20 MEQ ER TABLET PO PRN (07:45)
[2017-08-09 08:00] VITALS: BP 156/94
[2017-08-09] MEDS: OXYGEN THERAPY IH SCH ×2 (08:00→20:13)
[2017-08-09] MEDS: METOPROLOL SUCCINATE 25 MG ER TABLET PO SCH (08:32)
[2017-08-09] MEDS: BUMETANIDE 0.25 MG/ML 4 ML VIAL IVP SCH ×2 (08:32→20:15)
[2017-08-09] MEDS: POTASSIUM CHL 10 MEQ/WATER 50 ML IV PRN ×4 (08:33→14:40)
[2017-08-09] MEDS: CARVEDILOL 3.125 MG TABLET PO SCH ×2 (08:33→20:15)
[2017-08-09] MEDS: AMIODARONE HCL 200 MG TABLET PO SCH (08:33)
[2017-08-09] MEDS: CHOLECALCIFEROL (VIT D3) 400 UNITS TABLET PO SCH (08:33)
[2017-08-09 10:49] LABS: ABG A-A DIFF O2 107.5 mmHg (10-20.0); ABG BASE EXCESS 9.3 mmol/L (-2.0-3.0); ABG HCO3 32.9 mmol/L (22.0-26.0); ABG PCO2 32 mmHg (35-45); ABG PH 7.599 (7.35-7.450); TEMPERATURE, FAHRENHEIT, BG 98.6 FAHREN (96.0-98.6)
[2017-08-09] MEDS: HydrALAZINE HCL 20 MG/ML VIAL IVP PRN (10:51)
[2017-08-09 11:16] LABS: PROCALCITONIN (PCT) 3.86 ng/mL (<0.50)
[2017-08-09 12:00] VITALS: BP 127/73
[2017-08-09 12:47] LABS: ABG A-A DIFF O2 90.4 mmHg (10-20.0); ABG BASE EXCESS 7.5 mmol/L (-2.0-3.0); ABG HCO3 31.1 mmol/L (22.0-26.0); ABG OXYHEMOGLOBIN 95.2 % (94.0-100.0); ABG PCO2 36 mmHg (35-45); ABG PH 7.542 (7.35-7.450); TEMPERATURE, FAHRENHEIT, BG 98.6 FAHREN (96.0-98.6)
[2017-08-09] MEDS ORDERED: PANTOPRAZOLE SODIUM 80 MG in SODIUM CHLORIDE 0.9% 100 ML IV SCH (14:45)
[2017-08-09 16:00] VITALS: BP 151/87
[2017-08-09] MEDS: WARFARIN SODIUM 2 MG TABLET PO SCH (17:52)
[2017-08-09 20:00] VITALS: BP 146/80
[2017-08-09] MEDS: ATORVASTATIN CALCIUM 20 MG TABLET PO SCH (20:15)
[2017-08-10] VITALS: BP 133/78
[2017-08-10] MEDS: FentaNYL CITRATE PF 500 MCG in DEXTROSE 5%-WATER 90 ML IV PRN ×2 (01:24→23:22)
[2017-08-10 04:00] VITALS: BP 94/50
[2017-08-10] MEDS ORDERED: NOREPINEPHRINE 4 MG/D5%-WATER 0 ML IV ONE (04:04)
[2017-08-10] MEDS: NOREPINEPHRINE BITARTRATE 8 MG in DEXTROSE 5%-WATER 242 ML IV PRN (04:33)
[2017-08-10 05:01] LABS: EOSINOPHILS # (AUTO) 0.01 K/uL (0.00-0.70); EOSINOPHILS % (AUTO) 0.05 % (1.0-6.0); HEMOGLOBIN 11.1 g/dL (12.0-16.0); LYMPHOCYTES # (AUTO) 0.4 K/uL (1.0-4.8); LYMPHOCYTES % (AUTO) 2.9 % (22.0-44.0); MEAN CORPUSCULAR HEMOGLOBIN 28.9 pg (26.0-34.0); MEAN CORPUSCULAR HGB CONC 32.8 G/dL (31.0-37.0); MEAN CORPUSCULAR VOLUME 88 fL (80-100); MONOCYTES # (AUTO) 0.5 K/uL (0.1-1.0); MONOCYTES % (AUTO) 3.5 % (2.0-9.0); NEUTROPHILS # (AUTO) 14.1 K/uL (1.8-7.7); PLATELET COUNT (AUTO) 110 K/uL (150-450); RED BLOOD CELL COUNT(AUTO) 3.85 MIL/uL (4.00-5.20); RED CELL DISTRIBUTION WIDTH 16.7 % (11.5-14.5)
[2017-08-10 05:08] LABS: CALCIUM, TOTAL 8.8 mg/dL (8.8-10.5); CREATININE 3.39 mg/dL (0.60-1.30); POTASSIUM 3.3 mmol/L (3.5-5.1)
[2017-08-10 06:46] LABS: NEUTROPHILS % (AUTO) 93.5 % (40.0-70.0); RBC MORPHOLOGY COMMENT NORMAL RBC MORPH
[2017-08-10 08:00] VITALS: BP 120/76
[2017-08-10] MEDS: AMIODARONE HCL 200 MG TABLET PO SCH (08:21)
[2017-08-10] MEDS: CHOLECALCIFEROL (VIT D3) 400 UNITS TABLET PO SCH (08:21)
[2017-08-10] MEDS: BUMETANIDE 0.25 MG/ML 4 ML VIAL IVP SCH (08:21)
[2017-08-10] MEDS: OXYGEN THERAPY IH SCH ×2 (08:21→21:37)
[2017-08-10] MEDS: CARVEDILOL 3.125 MG TABLET PO SCH ×2 (08:23→21:00)
[2017-08-10] MEDS: METOPROLOL SUCCINATE 25 MG ER TABLET PO SCH (08:23)
[2017-08-10] MEDS ORDERED: SODIUM CHLORIDE 0.9% 250 ML IV ONE (10:22)
[2017-08-10] MEDS: PIPERACILLIN SODIUM/TAZOBACTAM 2.25 GM in DEXTROSE 5%-WATER 50 ML IV SCH ×2 (10:38→17:35)
[2017-08-10 12:00] VITALS: BP 102/57
[2017-08-10 16:00] VITALS: BP 107/56
[2017-08-10] MEDS: WARFARIN SODIUM 2 MG TABLET PO SCH (17:34)
[2017-08-10 20:00] VITALS: BP 121/61
[2017-08-10] MEDS: ATORVASTATIN CALCIUM 20 MG TABLET PO SCH (21:37)
[2017-08-11] VITALS: BP 119/61
[2017-08-11] MEDS: PIPERACILLIN SODIUM/TAZOBACTAM 2.25 GM in DEXTROSE 5%-WATER 50 ML IV SCH ×3 (02:03→18:13)
[2017-08-11 04:00] VITALS: BP 124/70
[2017-08-11 05:09] LABS: CALCIUM, TOTAL 8.8 mg/dL (8.8-10.5); CREATININE 4.47 mg/dL (0.60-1.30); POTASSIUM 3.1 mmol/L (3.5-5.1)
[2017-08-11 08:00] VITALS: BP 130/66
[2017-08-11] MEDS: OXYGEN THERAPY IH SCH ×2 (08:23→21:50)
[2017-08-11] MEDS: METOPROLOL SUCCINATE 25 MG ER TABLET PO SCH (09:00)
[2017-08-11] MEDS: AMIODARONE HCL 200 MG TABLET PO SCH (09:41)
[2017-08-11] MEDS: POTASSIUM CHL 10 MEQ/WATER 50 ML IV PRN ×3 (09:42→13:10)
[2017-08-11] MEDS: CARVEDILOL 3.125 MG TABLET PO SCH ×2 (09:43→21:50)
[2017-08-11] MEDS: CHOLECALCIFEROL (VIT D3) 400 UNITS TABLET PO SCH (09:48)
[2017-08-11 12:00] VITALS: BP 152/84
[2017-08-11 14:00] LABS: BASOPHILS % (AUTO) 0.1 % (0.0-2.0); EOSINOPHILS % (AUTO) 0.1 % (1.0-6.0); HEMATOCRIT 35.8 % (36-46); HEMOGLOBIN 11.6 g/dL (12.0-16.0); LYMPHOCYTES # (AUTO) 0.5 K/uL (1.0-4.8); LYMPHOCYTES % (AUTO) 4.1 % (22.0-44.0); MEAN CORPUSCULAR HEMOGLOBIN 28.8 pg (26.0-34.0); MEAN CORPUSCULAR HGB CONC 32.4 G/dL (31.0-37.0); MEAN CORPUSCULAR VOLUME 89 fL (80-100); MONOCYTES # (AUTO) 0.7 K/uL (0.1-1.0); MONOCYTES % (AUTO) 5.3 % (2.0-9.0); NEUTROPHILS # (AUTO) 11.7 K/uL (1.8-7.7); NEUTROPHILS % (AUTO) 90.4 % (40.0-70.0); PLATELET COUNT (AUTO) 146 K/uL (150-450); RED BLOOD CELL COUNT(AUTO) 4.03 MIL/uL (4.00-5.20); RED CELL DISTRIBUTION WIDTH 17.6 % (11.5-14.5)
[2017-08-11 14:31] LABS: RBC MORPHOLOGY COMMENT ABNORMAL RBC MORPH
[2017-08-11 16:00] VITALS: BP 130/63
[2017-08-11 17:18] LABS: ABG A-A DIFF O2 53.5 mmHg (10-20.0); ABG BASE EXCESS 5.4 mmol/L (-2.0-3.0); ABG HCO3 28.7 mmol/L (22.0-26.0); ABG OXYHEMOGLOBIN 96.8 % (94.0-100.0); ABG PCO2 47 mmHg (35-45); ABG PH 7.418 (7.35-7.450); TEMPERATURE, FAHRENHEIT, BG 98.4 FAHREN (96.0-98.6)
[2017-08-11 17:21] LABS: ALLEN TEST, BLOOD GAS Positive
[2017-08-11] MEDS: WARFARIN SODIUM 2 MG TABLET PO SCH (18:13)
[2017-08-11 20:00] VITALS: BP 157/90
[2017-08-11] MEDS: ATORVASTATIN CALCIUM 20 MG TABLET PO SCH (21:50)
[2017-08-11] MEDS ORDERED: SODIUM CHLORIDE 0.9% 250 ML IV ONE (21:58)
[2017-08-11] MEDS: FentaNYL CITRATE PF 500 MCG in DEXTROSE 5%-WATER 90 ML IV PRN (22:07)
[2017-08-12] VITALS: BP 158/81
[2017-08-12] MEDS: PIPERACILLIN SODIUM/TAZOBACTAM 2.25 GM in DEXTROSE 5%-WATER 50 ML IV SCH ×3 (02:01→18:07)
[2017-08-12 04:00] VITALS: BP 91/52
[2017-08-12 05:07] LABS: EOSINOPHILS % (AUTO) 0.8 % (1.0-6.0); HEMOGLOBIN 11.3 g/dL (12.0-16.0); LYMPHOCYTES # (AUTO) 0.4 K/uL (1.0-4.8); LYMPHOCYTES % (AUTO) 3.5 % (22.0-44.0); MEAN CORPUSCULAR HEMOGLOBIN 28.7 pg (26.0-34.0); MEAN CORPUSCULAR HGB CONC 32.1 G/dL (31.0-37.0); MEAN CORPUSCULAR VOLUME 89 fL (80-100); MONOCYTES # (AUTO) 0.6 K/uL (0.1-1.0); MONOCYTES % (AUTO) 5.3 % (2.0-9.0); NEUTROPHILS # (AUTO) 10.2 K/uL (1.8-7.7); PLATELET COUNT (AUTO) 154 K/uL (150-450); RED BLOOD CELL COUNT(AUTO) 3.92 MIL/uL (4.00-5.20); RED CELL DISTRIBUTION WIDTH 17.4 % (11.5-14.5); WHITE BLOOD COUNT (AUTO) 11.3 K/uL (4.5-11.0)
[2017-08-12 05:22] LABS: ALBUMIN 1.7 g/dL (3.4-5.0); BILIRUBIN,TOTAL 0.5 mg/dL (0.1-1.0); CALCIUM, TOTAL 9.2 mg/dL (8.8-10.5); CREATININE 4.51 mg/dL (0.60-1.30); MAGNESIUM 2.4 mg/dL (1.80-2.40); PHOSPHORUS 3.1 mg/dL (2.5-4.9); POTASSIUM 4.1 mmol/L (3.5-5.1); TOTAL PROTEIN, SERUM 6.5 g/dL (6.4-8.2)
[2017-08-12 05:24] LABS: NEUTROPHILS % (AUTO) 90.4 % (40.0-70.0)
[2017-08-12 06:11] LABS: RBC MORPHOLOGY COMMENT ABNORMAL RBC MORPH
[2017-08-12 08:00] VITALS: BP 122/68
[2017-08-12] MEDS: CARVEDILOL 3.125 MG TABLET PO SCH ×2 (08:52→20:28)
[2017-08-12] MEDS: OXYGEN THERAPY IH SCH ×2 (08:52→19:45)
[2017-08-12] MEDS: CHOLECALCIFEROL (VIT D3) 400 UNITS TABLET PO SCH (08:53)
[2017-08-12] MEDS: AMIODARONE HCL 200 MG TABLET PO SCH (08:53)
[2017-08-12 12:00] VITALS: BP 80/42
[2017-08-12 16:00] VITALS: BP 143/87
[2017-08-12] MEDS: WARFARIN SODIUM 2 MG TABLET PO SCH (18:06)
[2017-08-12] MEDS: FentaNYL CITRATE PF 500 MCG in DEXTROSE 5%-WATER 90 ML IV PRN (18:56)
[2017-08-12 20:00] VITALS: BP 106/67
[2017-08-12] MEDS: ATORVASTATIN CALCIUM 20 MG TABLET PO SCH (20:29)
[2017-08-13] VITALS: BP 118/77
[2017-08-13] MEDS: PIPERACILLIN SODIUM/TAZOBACTAM 2.25 GM in DEXTROSE 5%-WATER 50 ML IV SCH ×3 (01:38→17:00)
[2017-08-13 04:00] VITALS: BP 135/75
[2017-08-13 05:39] LABS: ALBUMIN 1.7 g/dL (3.4-5.0); BILIRUBIN,TOTAL 0.4 mg/dL (0.1-1.0); CALCIUM, TOTAL 9.1 mg/dL (8.8-10.5); CREATININE 4.98 mg/dL (0.60-1.30); MAGNESIUM 2.6 mg/dL (1.80-2.40); PHOSPHORUS 3.4 mg/dL (2.5-4.9); POTASSIUM 4.5 mmol/L (3.5-5.1); TOTAL PROTEIN, SERUM 6.5 g/dL (6.4-8.2)
[2017-08-13 06:38] LABS: EOSINOPHILS % (AUTO) 1.2 % (1.0-6.0); HEMATOCRIT 33.9 % (36-46); HEMOGLOBIN 11.1 g/dL (12.0-16.0); LYMPHOCYTES # (AUTO) 0.4 K/uL (1.0-4.8); LYMPHOCYTES % (AUTO) 4.6 % (22.0-44.0); MEAN CORPUSCULAR HEMOGLOBIN 28.7 pg (26.0-34.0); MEAN CORPUSCULAR HGB CONC 32.7 G/dL (31.0-37.0); MEAN CORPUSCULAR VOLUME 88 fL (80-100); MONOCYTES # (AUTO) 0.9 K/uL (0.1-1.0); MONOCYTES % (AUTO) 9.3 % (2.0-9.0); NEUTROPHILS # (AUTO) 7.9 K/uL (1.8-7.7); NEUTROPHILS % (AUTO) 84.9 % (40.0-70.0); PLATELET COUNT (AUTO) 184 K/uL (150-450); RED BLOOD CELL COUNT(AUTO) 3.87 MIL/uL (4.00-5.20); WHITE BLOOD COUNT (AUTO) 9.3 K/uL (4.5-11.0)
[2017-08-13 08:00] VITALS: BP 131/77
[2017-08-13] MEDS: OXYGEN THERAPY IH SCH ×2 (08:00→19:17)
[2017-08-13 08:30] LABS: ABG A-A DIFF O2 57.9 mmHg (10-20.0); ABG BASE EXCESS 2.9 mmol/L (-2.0-3.0); ABG OXYHEMOGLOBIN 97.1 % (94.0-100.0); ABG PCO2 39 mmHg (35-45); ABG PH 7.458 (7.35-7.450); TEMPERATURE, FAHRENHEIT, BG 98.6 FAHREN (96.0-98.6)
[2017-08-13 09:05] LABS: RBC MORPHOLOGY COMMENT ABNORMAL RBC MORPH
[2017-08-13] MEDS: AMIODARONE HCL 200 MG TABLET PO SCH (09:07)
[2017-08-13] MEDS: CARVEDILOL 3.125 MG TABLET PO SCH ×2 (09:07→20:46)
[2017-08-13] MEDS: CHOLECALCIFEROL (VIT D3) 400 UNITS TABLET PO SCH (09:07)
[2017-08-13] MEDS: LACTULOSE 20 GM/30 ML SOLUTION UDCUP PO PRN ×2 (09:11→20:46)
[2017-08-13 12:00] VITALS: BP 127/75
[2017-08-13 16:00] VITALS: BP 103/58
[2017-08-13] MEDS: WARFARIN SODIUM 2 MG TABLET PO SCH (17:00)
[2017-08-13 20:00] VITALS: BP 121/67
[2017-08-13] MEDS: ATORVASTATIN CALCIUM 20 MG TABLET PO SCH (20:46)
[2017-08-14] VITALS: BP 121/73
[2017-08-14] MEDS: PIPERACILLIN SODIUM/TAZOBACTAM 2.25 GM in DEXTROSE 5%-WATER 50 ML IV SCH ×3 (01:06→17:42)
[2017-08-14 04:00] VITALS: BP 126/76
[2017-08-14 05:16] LABS: HEMATOCRIT 36.4 % (36-46); HEMOGLOBIN 11.7 g/dL (12.0-16.0); MEAN CORPUSCULAR HEMOGLOBIN 28.4 pg (26.0-34.0); MEAN CORPUSCULAR HGB CONC 32.3 G/dL (31.0-37.0); MEAN CORPUSCULAR VOLUME 88 fL (80-100); PLATELET COUNT (AUTO) 223 K/uL (150-450); RED BLOOD CELL COUNT(AUTO) 4.13 MIL/uL (4.00-5.20); RED CELL DISTRIBUTION WIDTH 16.8 % (11.5-14.5)
[2017-08-14 05:31] LABS: CALCIUM, TOTAL 9.5 mg/dL (8.8-10.5); CREATININE 5.27 mg/dL (0.60-1.30); POTASSIUM 4.5 mmol/L (3.5-5.1)
[2017-08-14 08:00] VITALS: BP 118/67
[2017-08-14] MEDS ORDERED: DEXTROSE 5%-WATER 1,000 ML IV SCH (08:00)
[2017-08-14] MEDS: CARVEDILOL 3.125 MG TABLET PO SCH ×2 (08:18→21:00)
[2017-08-14] MEDS: AMIODARONE HCL 200 MG TABLET PO SCH (08:18)
[2017-08-14] MEDS: CHOLECALCIFEROL (VIT D3) 400 UNITS TABLET PO SCH (08:18)
[2017-08-14 08:30] LABS: BAND NEUTROPHILS % (MANUAL) 1 % (1-5); LYMPHOCYTES % (MANUAL) 9 % (22-44); REACTIVE LYMPHOCYTES 1 % (0-0); TOTAL CELLS COUNTED 100
[2017-08-14] MEDS: OXYGEN THERAPY IH SCH ×2 (08:47→21:24)
[2017-08-14 12:00] VITALS: BP 110/60
[2017-08-14 16:00] VITALS: BP 94/53
[2017-08-14] MEDS: WARFARIN SODIUM 2 MG TABLET PO SCH (17:42)
[2017-08-14 20:00] VITALS: BP 105/62
[2017-08-14] MEDS ORDERED: SODIUM CHLORIDE 0.9% 250 ML IV ONE (21:16)
[2017-08-14] MEDS: ATORVASTATIN CALCIUM 20 MG TABLET PO SCH (21:24)
[2017-08-15] VITALS: BP 111/65
[2017-08-15] MEDS: PIPERACILLIN SODIUM/TAZOBACTAM 2.25 GM in DEXTROSE 5%-WATER 50 ML IV SCH ×3 (01:00→17:02)
[2017-08-15 04:00] VITALS: BP 119/65
[2017-08-15 05:19] LABS: HEMATOCRIT 36.1 % (36-46); HEMOGLOBIN 11.4 g/dL (12.0-16.0); MEAN CORPUSCULAR HEMOGLOBIN 28.3 pg (26.0-34.0); MEAN CORPUSCULAR HGB CONC 31.7 G/dL (31.0-37.0); MEAN CORPUSCULAR VOLUME 89 fL (80-100); PLATELET COUNT (AUTO) 227 K/uL (150-450); RED BLOOD CELL COUNT(AUTO) 4.04 MIL/uL (4.00-5.20); WHITE BLOOD COUNT (AUTO) 10.6 K/uL (4.5-11.0)
[2017-08-15 05:30] LABS: CREATININE 5.74 mg/dL (0.60-1.30); MAGNESIUM 2.8 mg/dL (1.80-2.40); POTASSIUM 4.3 mmol/L (3.5-5.1)
[2017-08-15 07:43] LABS: BAND NEUTROPHILS % (MANUAL) 9 % (1-5); LYMPHOCYTES % (MANUAL) 10 % (22-44); TOTAL CELLS COUNTED 100
[2017-08-15 07:44] LABS: RBC MORPHOLOGY COMMENT ABNORMAL RBC MORPH
[2017-08-15 08:00] VITALS: BP 96/53
[2017-08-15] MEDS: OXYGEN THERAPY IH SCH ×2 (08:00→20:09)
[2017-08-15] MEDS: AMIODARONE HCL 200 MG TABLET PO SCH (08:08)
[2017-08-15] MEDS: CARVEDILOL 3.125 MG TABLET PO SCH ×2 (08:08→21:01)
[2017-08-15] MEDS: CHOLECALCIFEROL (VIT D3) 400 UNITS TABLET PO SCH (08:10)
[2017-08-15 12:00] VITALS: BP 119/67
[2017-08-15 16:00] VITALS: BP 84/45
[2017-08-15] MEDS: WARFARIN SODIUM 2 MG TABLET PO SCH (17:02)
[2017-08-15 18:36] LABS: INR 3.7 (0.9-1.1); PROTHROMBIN TIME 39.4 SEC (9.4-11.6)
[2017-08-15 20:00] VITALS: BP 90/44
[2017-08-15] MEDS: ATORVASTATIN CALCIUM 20 MG TABLET PO SCH (21:01)
[2017-08-15] MEDS ORDERED: SODIUM CHLORIDE 0.9% 250 ML IV ONE (22:23)
[2017-08-16] VITALS: BP 88/51
[2017-08-16] MEDS: PIPERACILLIN SODIUM/TAZOBACTAM 2.25 GM in DEXTROSE 5%-WATER 50 ML IV SCH ×3 (01:33→20:11)
[2017-08-16 04:00] VITALS: BP 87/45
[2017-08-16] MEDS: NOREPINEPHRINE BITARTRATE 8 MG in DEXTROSE 5%-WATER 242 ML IV PRN (05:04)
[2017-08-16 05:35] LABS: INR 3.8 (0.9-1.1); PROTHROMBIN TIME 40.4 SEC (9.4-11.6)
[2017-08-16 05:39] LABS: CALCIUM, TOTAL 8.9 mg/dL (8.8-10.5); CREATININE 6.13 mg/dL (0.60-1.30); PHOSPHORUS 5.5 mg/dL (2.5-4.9); POTASSIUM 4.2 mmol/L (3.5-5.1)
[2017-08-16 06:22] LABS: HEMATOCRIT 33.1 % (36-46); HEMOGLOBIN 10.7 g/dL (12.0-16.0); MEAN CORPUSCULAR HEMOGLOBIN 28.5 pg (26.0-34.0); MEAN CORPUSCULAR HGB CONC 32.4 G/dL (31.0-37.0); MEAN CORPUSCULAR VOLUME 88 fL (80-100); PLATELET COUNT (AUTO) 222 K/uL (150-450); RED BLOOD CELL COUNT(AUTO) 3.77 MIL/uL (4.00-5.20); RED CELL DISTRIBUTION WIDTH 16.8 % (11.5-14.5); WHITE BLOOD COUNT (AUTO) 10.7 K/uL (4.5-11.0)
[2017-08-16 08:00] VITALS: BP 93/47
[2017-08-16] MEDS: CARVEDILOL 3.125 MG TABLET PO SCH ×2 (09:00→20:11)
[2017-08-16] MEDS: AMIODARONE HCL 200 MG TABLET PO SCH (09:21)
[2017-08-16] MEDS: CHOLECALCIFEROL (VIT D3) 400 UNITS TABLET PO SCH (09:21)
[2017-08-16 10:18] LABS: BAND NEUTROPHILS % (MANUAL) 2 % (1-5); EOSINOPHILS % (MANUAL) 2 % (1-6); LYMPHOCYTES % (MANUAL) 3 % (22-44); TOTAL CELLS COUNTED 100
[2017-08-16 10:20] LABS: RBC MORPHOLOGY COMMENT ABNORMAL R
[2017-08-16] MEDS ORDERED: RAPID SEQUENCE KIT [RSI] 1 EACH KIT ONE ×2 (10:26)
[2017-08-16] MEDS ORDERED: MORPHINE SULFATE 2 MG/ML SYRINGE ONE (10:33)
[2017-08-16 12:00] VITALS: BP 98/60
[2017-08-16 16:00] VITALS: BP 104/52
[2017-08-16] MEDS ORDERED: SODIUM CITRATE 4% CATH FLUSH 5 ML SYRINGE IVCATH PRN ×2 (16:00)
[2017-08-16] MEDS ORDERED: SODIUM CITRATE 4% CATH FLUSH 5 ML SYRINGE IVP ONE ×4 (16:15→20:15)
[2017-08-16] MEDS: IPRATROPIUM BROMIDE 0.5 MG/2.5 ML NEB SOLUTION NEB PRN (16:28)
[2017-08-16] MEDS: ALBUTEROL SULFATE 2.5 MG/0.5 ML NEB SOLUTION NEB PRN (16:28)
[2017-08-16] MEDS ORDERED: ALBUMIN HUMAN 25%-12.5GM/50ML IV BOTTLE IV ONE (16:38)
[2017-08-16] MEDS ORDERED: MANNITOL 25%-12.5 GM/50 ML VIAL IVP ONE (16:38)
[2017-08-16] MEDS ORDERED: ETOMIDATE 2 MG/ML 10 ML VIAL IV ONE (16:45)
[2017-08-16 20:00] VITALS: BP 99/50
[2017-08-16] MEDS: OXYGEN THERAPY IH SCH (20:00)
[2017-08-16] MEDS: ATORVASTATIN CALCIUM 20 MG TABLET PO SCH (20:11)
[2017-08-16] MEDS ORDERED: MANNITOL 25%-12.5 GM/50 ML VIAL IVP PRN (20:15)
[2017-08-16] MEDS ORDERED: ALBUMIN HUMAN 25%-12.5GM/50ML IV BOTTLE IV PRN (20:15)
[2017-08-17] VITALS: BP 123/62
[2017-08-17] MEDS: PIPERACILLIN SODIUM/TAZOBACTAM 2.25 GM in DEXTROSE 5%-WATER 50 ML IV SCH ×3 (02:20→17:36)
[2017-08-17] MEDS: OXYGEN THERAPY IH SCH ×3 (02:20→20:07)
[2017-08-17 04:00] VITALS: BP 122/74
[2017-08-17 05:46] LABS: CALCIUM, TOTAL 8.8 mg/dL (8.8-10.5); CREATININE 4.18 mg/dL (0.60-1.30); POTASSIUM 3.9 mmol/L (3.5-5.1)
[2017-08-17 06:03] LABS: EOSINOPHILS % (AUTO) 1.6 % (1.0-6.0); HEMATOCRIT 31.8 % (36-46); HEMOGLOBIN 10.4 g/dL (12.0-16.0); LYMPHOCYTES # (AUTO) 0.4 K/uL (1.0-4.8); LYMPHOCYTES % (AUTO) 3.6 % (22.0-44.0); MEAN CORPUSCULAR HEMOGLOBIN 28.9 pg (26.0-34.0); MEAN CORPUSCULAR HGB CONC 32.6 G/dL (31.0-37.0); MEAN CORPUSCULAR VOLUME 89 fL (80-100); MONOCYTES # (AUTO) 0.7 K/uL (0.1-1.0); MONOCYTES % (AUTO) 7.1 % (2.0-9.0); NEUTROPHILS # (AUTO) 8.8 K/uL (1.8-7.7); PLATELET COUNT (AUTO) 261 K/uL (150-450); RED CELL DISTRIBUTION WIDTH 16.6 % (11.5-14.5)
[2017-08-17 06:39] LABS: NEUTROPHILS % (AUTO) 87.7 % (40.0-70.0)
[2017-08-17 08:00] VITALS: BP 99/58
[2017-08-17] MEDS ORDERED: SODIUM CHLORIDE 0.9% 2,000 ML IV ONE (08:04)
[2017-08-17 08:39] LABS: RBC MORPHOLOGY COMMENT ABNORMAL RBC MORPH
[2017-08-17] MEDS: PROPOFOL 1000 MG/ISO-OSM 100 ML IV PRN ×2 (08:43→16:26)
[2017-08-17] MEDS: CHOLECALCIFEROL (VIT D3) 400 UNITS TABLET PO SCH (08:44)
[2017-08-17] MEDS: CARVEDILOL 3.125 MG TABLET PO SCH ×2 (08:44→20:06)
[2017-08-17] MEDS: AMIODARONE HCL 200 MG TABLET PO SCH (08:44)
[2017-08-17] MEDS: IPRATROPIUM BROMIDE 0.5 MG/2.5 ML NEB SOLUTION NEB PRN (08:49)
[2017-08-17] MEDS: ALBUTEROL SULFATE 2.5 MG/0.5 ML NEB SOLUTION NEB PRN (08:49)
[2017-08-17] MEDS ORDERED: SODIUM CITRATE 4% CATH FLUSH 5 ML SYRINGE IVP ONE ×2 (09:15)
[2017-08-17] MEDS ORDERED: MANNITOL 25%-12.5 GM/50 ML VIAL IVP PRN (09:15)
[2017-08-17] MEDS ORDERED: ALBUMIN HUMAN 25%-12.5GM/50ML IV BOTTLE IV PRN (09:15)
[2017-08-17 12:00] VITALS: BP 115/73
[2017-08-17 16:00] VITALS: BP 103/68
[2017-08-17] MEDS ORDERED: MANNITOL 25%-12.5 GM/50 ML VIAL IVP ONE (16:53)
[2017-08-17] MEDS ORDERED: ALBUMIN HUMAN 25%-12.5GM/50ML IV BOTTLE IV ONE (16:53)
[2017-08-17 20:00] VITALS: BP 100/63
[2017-08-17] MEDS: ATORVASTATIN CALCIUM 20 MG TABLET PO SCH (20:06)
[2017-08-18] VITALS (8 sets, daily range): BP systolic 103–128; BP diastolic 56–72
[2017-08-18] MEDS: PIPERACILLIN SODIUM/TAZOBACTAM 2.25 GM in DEXTROSE 5%-WATER 50 ML IV SCH ×3 (01:33→17:24)
[2017-08-18] MEDS: PROPOFOL 1000 MG/ISO-OSM 100 ML IV PRN (04:54)
[2017-08-18 05:29] LABS: EOSINOPHILS % (AUTO) 1.8 % (1.0-6.0); HEMATOCRIT 29.8 % (36-46); HEMOGLOBIN 9.7 g/dL (12.0-16.0); LYMPHOCYTES # (AUTO) 0.4 K/uL (1.0-4.8); LYMPHOCYTES % (AUTO) 3.8 % (22.0-44.0); MEAN CORPUSCULAR HEMOGLOBIN 28.8 pg (26.0-34.0); MEAN CORPUSCULAR HGB CONC 32.5 G/dL (31.0-37.0); MEAN CORPUSCULAR VOLUME 89 fL (80-100); MONOCYTES # (AUTO) 0.8 K/uL (0.1-1.0); MONOCYTES % (AUTO) 6.9 % (2.0-9.0); NEUTROPHILS # (AUTO) 9.5 K/uL (1.8-7.7); PLATELET COUNT (AUTO) 263 K/uL (150-450); RED BLOOD CELL COUNT(AUTO) 3.37 MIL/uL (4.00-5.20); RED CELL DISTRIBUTION WIDTH 16.6 % (11.5-14.5); WHITE BLOOD COUNT (AUTO) 10.9 K/uL (4.5-11.0)
[2017-08-18 05:44] LABS: ALBUMIN 2.1 g/dL (3.4-5.0); BILIRUBIN,TOTAL 0.4 mg/dL (0.1-1.0); CALCIUM, TOTAL 8.8 mg/dL (8.8-10.5); CREATININE 3.54 mg/dL (0.60-1.30); PHOSPHORUS 4.6 mg/dL (2.5-4.9); POTASSIUM 3.8 mmol/L (3.5-5.1); TOTAL PROTEIN, SERUM 6.4 g/dL (6.4-8.2)
[2017-08-18 06:02] LABS: NEUTROPHILS % (AUTO) 87.5 % (40.0-70.0)
[2017-08-18] MEDS: CARVEDILOL 3.125 MG TABLET PO SCH ×2 (08:56→20:06)
[2017-08-18] MEDS: CHOLECALCIFEROL (VIT D3) 400 UNITS TABLET PO SCH (09:15)
[2017-08-18] MEDS: AMIODARONE HCL 200 MG TABLET PO SCH (09:15)
[2017-08-18] MEDS: OXYGEN THERAPY IH SCH ×2 (09:16→21:01)
[2017-08-18] MEDS: MULTIVITAMINS WITH MINERALS, THERAPEUTIC 15 ML UDCUP NG SCH (09:16)
[2017-08-18] MEDS: MORPHINE SULFATE 2 MG/ML SYRINGE IVP PRN (18:01)
[2017-08-18] MEDS: ATORVASTATIN CALCIUM 20 MG TABLET PO SCH (20:06)
[2017-08-19] VITALS: BP 119/69
[2017-08-19] MEDS: PIPERACILLIN SODIUM/TAZOBACTAM 2.25 GM in DEXTROSE 5%-WATER 50 ML IV SCH ×3 (01:35→17:37)
[2017-08-19 04:00] VITALS: BP 137/66
[2017-08-19 05:22] LABS: CALCIUM, TOTAL 9.1 mg/dL (8.8-10.5); CREATININE 5.1 mg/dL (0.60-1.30); MAGNESIUM 2.8 mg/dL (1.80-2.40); PHOSPHORUS 5.4 mg/dL (2.5-4.9); POTASSIUM 3.6 mmol/L (3.5-5.1)
[2017-08-19 05:58] LABS: INR 2.1 (0.9-1.1); PROTHROMBIN TIME 21.7 SEC (9.4-11.6)
[2017-08-19 06:02] LABS: HEMATOCRIT 31.1 % (36-46); HEMOGLOBIN 10.3 g/dL (12.0-16.0); MEAN CORPUSCULAR HEMOGLOBIN 29.4 pg (26.0-34.0); MEAN CORPUSCULAR VOLUME 89 fL (80-100); PLATELET COUNT (AUTO) 301 K/uL (150-450); RED CELL DISTRIBUTION WIDTH 16.3 % (11.5-14.5); WHITE BLOOD COUNT (AUTO) 13.5 K/uL (4.5-11.0)
[2017-08-19 08:00] VITALS: BP 128/71
[2017-08-19] MEDS: MULTIVITAMINS WITH MINERALS, THERAPEUTIC 15 ML UDCUP NG SCH (08:54)
[2017-08-19] MEDS: CARVEDILOL 3.125 MG TABLET PO SCH ×2 (08:54→21:42)
[2017-08-19] MEDS: AMIODARONE HCL 200 MG TABLET PO SCH (08:55)
[2017-08-19] MEDS: CHOLECALCIFEROL (VIT D3) 400 UNITS TABLET PO SCH (08:55)
[2017-08-19 09:54] LABS: BAND NEUTROPHILS % (MANUAL) 3 % (1-5); LYMPHOCYTES % (MANUAL) 5 % (22-44); TOTAL CELLS COUNTED 100
[2017-08-19 09:55] LABS: RBC MORPHOLOGY COMMENT ABNORMAL R
[2017-08-19 10:51] LABS: ABG A-A DIFF O2 61.6 mmHg (10-20.0); ABG BASE EXCESS 0.8 mmol/L (-2.0-3.0); ABG HCO3 25.6 mmol/L (22.0-26.0); ABG OXYHEMOGLOBIN 98.5 % (94.0-100.0); ABG PCO2 31 mmHg (35-45); ABG PH 7.504 (7.35-7.450); TEMPERATURE, FAHRENHEIT, BG 98.6 FAHREN (96.0-98.6)
[2017-08-19 10:52] LABS: INSIPIRATORY PRESSURE, BG 18 cm H2O
[2017-08-19] MEDS ORDERED: SODIUM CHLORIDE 0.9% 2,000 ML IV ONE (11:59)
[2017-08-19 12:00] VITALS: BP 113/77
[2017-08-19 16:00] VITALS: BP 101/54
[2017-08-19 20:00] VITALS: BP 112/59
[2017-08-19] MEDS: ATORVASTATIN CALCIUM 20 MG TABLET PO SCH (21:42)
[2017-08-19] MEDS ORDERED: ALBUMIN HUMAN 25%-12.5GM/50ML IV BOTTLE IRRIG ONE (23:46)
[2017-08-20] VITALS: BP 149/88
[2017-08-20] MEDS ORDERED: SODIUM CHLORIDE 0.9% 250 ML IV ONE (01:12)
[2017-08-20] MEDS: PIPERACILLIN SODIUM/TAZOBACTAM 2.25 GM in DEXTROSE 5%-WATER 50 ML IV SCH ×3 (01:42→17:04)
[2017-08-20 04:00] VITALS: BP 129/69
[2017-08-20 08:00] VITALS: BP 104/60
[2017-08-20] MEDS: CHOLECALCIFEROL (VIT D3) 400 UNITS TABLET PO SCH (08:22)
[2017-08-20] MEDS: MULTIVITAMINS WITH MINERALS, THERAPEUTIC 15 ML UDCUP NG SCH (08:22)
[2017-08-20] MEDS: CARVEDILOL 3.125 MG TABLET PO SCH ×2 (08:23→20:21)
[2017-08-20] MEDS: AMIODARONE HCL 200 MG TABLET PO SCH (08:23)
[2017-08-20 12:00] VITALS: BP 101/70
[2017-08-20 16:00] VITALS: BP 123/68
[2017-08-20] MEDS: METOCLOPRAMIDE HCL 5 MG/ML 2 ML VIAL IVP SCH (18:06)
[2017-08-20 20:00] VITALS: BP 122/66
[2017-08-20] MEDS: ATORVASTATIN CALCIUM 20 MG TABLET PO SCH (20:21)
[2017-08-21] VITALS: BP 107/60
[2017-08-21] MEDS: METOCLOPRAMIDE HCL 5 MG/ML 2 ML VIAL IVP SCH ×4 (01:12→23:45)
[2017-08-21] MEDS: PIPERACILLIN SODIUM/TAZOBACTAM 2.25 GM in DEXTROSE 5%-WATER 50 ML IV SCH ×3 (02:18→17:47)
[2017-08-21 04:00] VITALS: BP 105/57
[2017-08-21 08:00] VITALS: BP 125/64
[2017-08-21] MEDS: ALBUTEROL SULFATE 2.5 MG/0.5 ML NEB SOLUTION NEB PRN (08:09)
[2017-08-21] MEDS: IPRATROPIUM BROMIDE 0.5 MG/2.5 ML NEB SOLUTION NEB PRN (08:09)
[2017-08-21] MEDS: CARVEDILOL 3.125 MG TABLET PO SCH ×2 (09:01→21:02)
[2017-08-21] MEDS: CHOLECALCIFEROL (VIT D3) 400 UNITS TABLET PO SCH (09:01)
[2017-08-21] MEDS: AMIODARONE HCL 200 MG TABLET PO SCH (09:01)
[2017-08-21] MEDS: MULTIVITAMINS WITH MINERALS, THERAPEUTIC 15 ML UDCUP NG SCH (09:02)
[2017-08-21 12:00] VITALS: BP 119/67
[2017-08-21 16:00] VITALS: BP 112/57
[2017-08-21 16:18] LABS: INR 1.6 (0.9-1.1); PROTHROMBIN TIME 16.9 SEC (9.4-11.6)
[2017-08-21 20:00] VITALS: BP 113/62
[2017-08-21] MEDS: ATORVASTATIN CALCIUM 20 MG TABLET PO SCH (21:02)
[2017-08-21] MEDS ORDERED: SODIUM CHLORIDE 0.9% 250 ML IV ONE (23:22)
[2017-08-22] VITALS: BP 114/57
[2017-08-22] MEDS: PIPERACILLIN SODIUM/TAZOBACTAM 2.25 GM in DEXTROSE 5%-WATER 50 ML IV SCH ×3 (01:54→18:00)
[2017-08-22 04:00] VITALS: BP 150/70
[2017-08-22 05:33] LABS: INR 1.6 (0.9-1.1); PROTHROMBIN TIME 16.7 SEC (9.4-11.6)
[2017-08-22 05:49] LABS: CALCIUM, TOTAL 8.8 mg/dL (8.8-10.5); CREATININE 6.46 mg/dL (0.60-1.30); MAGNESIUM 2.9 mg/dL (1.80-2.40); PHOSPHORUS 6.6 mg/dL (2.5-4.9); POTASSIUM 3.3 mmol/L (3.5-5.1)
[2017-08-22 05:51] LABS: BASOPHILS % (AUTO) 0.1 % (0.0-2.0); EOSINOPHILS % (AUTO) 1.2 % (1.0-6.0); HEMATOCRIT 31.1 % (36-46); HEMOGLOBIN 10.3 g/dL (12.0-16.0); LYMPHOCYTES # (AUTO) 0.6 K/uL (1.0-4.8); LYMPHOCYTES % (AUTO) 3.7 % (22.0-44.0); MEAN CORPUSCULAR HEMOGLOBIN 29.2 pg (26.0-34.0); MEAN CORPUSCULAR VOLUME 88 fL (80-100); MONOCYTES # (AUTO) 1.2 K/uL (0.1-1.0); MONOCYTES % (AUTO) 7.5 % (2.0-9.0); NEUTROPHILS # (AUTO) 13.5 K/uL (1.8-7.7); PLATELET COUNT (AUTO) 357 K/uL (150-450); RED BLOOD CELL COUNT(AUTO) 3.51 MIL/uL (4.00-5.20); RED CELL DISTRIBUTION WIDTH 15.9 % (11.5-14.5); WHITE BLOOD COUNT (AUTO) 15.4 K/uL (4.5-11.0)
[2017-08-22 06:50] LABS: NEUTROPHILS % (AUTO) 87.5 % (40.0-70.0)
[2017-08-22 08:00] VITALS: BP 135/67
[2017-08-22] MEDS: AMIODARONE HCL 200 MG TABLET PO SCH (08:03)
[2017-08-22] MEDS: METOCLOPRAMIDE HCL 5 MG/ML 2 ML VIAL IVP SCH ×3 (08:03→23:18)
[2017-08-22] MEDS: CARVEDILOL 3.125 MG TABLET PO SCH ×2 (08:03→20:38)
[2017-08-22] MEDS: CHOLECALCIFEROL (VIT D3) 400 UNITS TABLET PO SCH (08:03)
[2017-08-22] MEDS: MULTIVITAMINS WITH MINERALS, THERAPEUTIC 15 ML UDCUP NG SCH (08:04)
[2017-08-22] MEDS: -POST HEMODIALYSIS NOTE- MISC SCH (08:05)
[2017-08-22] MEDS ORDERED: SODIUM CHLORIDE 0.9% 1,000 ML IV ONE ×2 (09:45→12:37)
[2017-08-22 12:00] VITALS: BP 107/48
[2017-08-22] MEDS ORDERED: FentaNYL CITRATE-PF 100 MCG/2 ML VIAL IVP ONE (12:00)
[2017-08-22] MEDS ORDERED: PHENYLEPHRINE HCL 10 MG/ML VIAL IVP ONE (12:00)
[2017-08-22] MEDS ORDERED: PROPOFOL 1% 20 ML VIAL IVP ONE (12:00)
[2017-08-22] MEDS ORDERED: LIDOCAINE HCL/PF 2% 5 ML VIAL INJ ONE (12:00)
[2017-08-22] MEDS ORDERED: SUCCINYLCHOLINE CHLORIDE 20 MG/ML 10 ML VIAL IVP ONE (12:00)
[2017-08-22] MEDS ORDERED: MIDAZOLAM HCL 2 MG/2 ML VIAL IVP ONE (12:00)
[2017-08-22] MEDS ORDERED: ETOMIDATE 2 MG/ML 10 ML VIAL IVP ONE (12:00)
[2017-08-22] MEDS ORDERED: ROCURONIUM BROMIDE 10 MG/ML 5 ML VIAL IVP ONE (12:00)
[2017-08-22] MEDS ORDERED: ONDANSETRON HCL 4 MG/2 ML VIAL IVP ONE (12:00)
[2017-08-22] MEDS ORDERED: METOCLOPRAMIDE HCL 5 MG/ML 2 ML VIAL IVP ONE (12:00)
[2017-08-22] MEDS ORDERED: LIDOCAINE HCL 1%/EPI 1:200,000/PF 10 ML VIAL ONE (12:37)
[2017-08-22] MEDS ORDERED: MANNITOL 25%-12.5 GM/50 ML VIAL IVP PRN (19:30)
[2017-08-22] MEDS ORDERED: HEPARIN SODIUM,PORCINE 1,000 UNITS/ML VIAL IVP ONE ×2 (19:30)
[2017-08-22 20:00] VITALS: BP 129/63
[2017-08-22] MEDS: ATORVASTATIN CALCIUM 20 MG TABLET PO SCH (20:37)
[2017-08-22] MEDS: PIPERACILLIN SODIUM/TAZOBACTAM 0.75 GM in DEXTROSE 5%-WATER 50 ML IV PRN (21:33)
[2017-08-22] MEDS ORDERED: SODIUM CITRATE 4% CATH FLUSH 5 ML SYRINGE IVP ONE ×3 (21:45)
[2017-08-23] VITALS (7 sets, daily range): BP systolic 101–130; BP diastolic 46–69
[2017-08-23] MEDS: PIPERACILLIN SODIUM/TAZOBACTAM 2.25 GM in DEXTROSE 5%-WATER 50 ML IV SCH ×3 (01:36→17:33)
[2017-08-23 05:57] LABS: ALBUMIN 1.9 g/dL (3.4-5.0); BILIRUBIN,TOTAL 0.7 mg/dL (0.1-1.0); CALCIUM, TOTAL 8.7 mg/dL (8.8-10.5); CREATININE 3.43 mg/dL (0.60-1.30); PHOSPHORUS 4.9 mg/dL (2.5-4.9); POTASSIUM 3.4 mmol/L (3.5-5.1); TOTAL PROTEIN, SERUM 6.5 g/dL (6.4-8.2)
[2017-08-23 06:11] LABS: EOSINOPHILS % (AUTO) 0.2 % (1.0-6.0); HEMATOCRIT 27.8 % (36-46); HEMOGLOBIN 9.1 g/dL (12.0-16.0); LYMPHOCYTES # (AUTO) 0.3 K/uL (1.0-4.8); LYMPHOCYTES % (AUTO) 1.8 % (22.0-44.0); MEAN CORPUSCULAR HGB CONC 32.8 G/dL (31.0-37.0); MEAN CORPUSCULAR VOLUME 88 fL (80-100); MONOCYTES # (AUTO) 0.9 K/uL (0.1-1.0); MONOCYTES % (AUTO) 5.3 % (2.0-9.0); NEUTROPHILS # (AUTO) 15.8 K/uL (1.8-7.7); PLATELET COUNT (AUTO) 383 K/uL (150-450); RED BLOOD CELL COUNT(AUTO) 3.14 MIL/uL (4.00-5.20); RED CELL DISTRIBUTION WIDTH 16.1 % (11.5-14.5); WHITE BLOOD COUNT (AUTO) 17.1 K/uL (4.5-11.0)
[2017-08-23 07:15] LABS: NEUTROPHILS % (AUTO) 92.7 % (40.0-70.0)
[2017-08-23] MEDS: METOCLOPRAMIDE HCL 5 MG/ML 2 ML VIAL IVP SCH ×2 (08:20→16:44)
[2017-08-23] MEDS ORDERED: HEPARIN SODIUM 1000 UNITS/NS 500 ML ONE (08:43)
[2017-08-23] MEDS ORDERED: HEPARIN SODIUM,PORCINE 1,000 UNITS/ML 10 ML VIAL ONE (08:43)
[2017-08-23] MEDS ORDERED: SODIUM BICARBONATE 50 MEQ/50 ML VIAL ONE (08:43)
[2017-08-23] MEDS ORDERED: LIDOCAINE HCL/PF 1% 30 ML VIAL ONE (08:43)
[2017-08-23] MEDS: MULTIVITAMINS WITH MINERALS, THERAPEUTIC 15 ML UDCUP NG SCH (09:00)
[2017-08-23] MEDS: CARVEDILOL 3.125 MG TABLET PO SCH ×3 (09:00→21:45)
[2017-08-23] MEDS: -POST HEMODIALYSIS NOTE- MISC SCH (09:00)
[2017-08-23] MEDS: CHOLECALCIFEROL (VIT D3) 400 UNITS TABLET PO SCH (09:00)
[2017-08-23] MEDS: AMIODARONE HCL 200 MG TABLET PO SCH (09:00)
[2017-08-23] MEDS ORDERED: FentaNYL CITRATE-PF 100 MCG/2 ML VIAL ONE (10:58)
[2017-08-23] MEDS ORDERED: NALOXONE HCL 0.4 MG/ML VIAL ONE (10:58)
[2017-08-23] MEDS ORDERED: MIDAZOLAM HCL 2 MG/2 ML VIAL ONE (10:58)
[2017-08-23] MEDS ORDERED: FLUMAZENIL 0.1 MG/ML 5 ML VIAL IVP ONE (10:58)
[2017-08-23] MEDS ORDERED: LIDOCAINE HCL 1%/EPI 1:200,000/PF 10 ML VIAL ONE (11:43)
[2017-08-23] MEDS ORDERED: FentaNYL CITRATE-PF 100 MCG/2 ML VIAL IVP ONE (11:53)
[2017-08-23] MEDS ORDERED: MAGNESIUM HYDROXIDE SUSPENSION 30 ML UDCUP PO PRN (17:45)
[2017-08-23] MEDS ORDERED: DEXTROSE 50%-WATER 25 GM/50 ML SYRINGE IVP PRN (21:00)
[2017-08-23] MEDS ORDERED: ONDANSETRON HCL 4 MG/2 ML VIAL IVP PRN (21:00)
[2017-08-23] MEDS: ATORVASTATIN CALCIUM 20 MG TABLET PO SCH (21:45)
[2017-08-24] VITALS (8 sets, daily range): BP systolic 88–130; BP diastolic 53–69
[2017-08-24] MEDS: METOCLOPRAMIDE HCL 5 MG/ML 2 ML VIAL IVP SCH ×3 (00:02→16:26)
[2017-08-24] MEDS ORDERED: SODIUM CHLORIDE 0.9% 500 ML IV ONE (01:54)
[2017-08-24] MEDS: PIPERACILLIN SODIUM/TAZOBACTAM 2.25 GM in DEXTROSE 5%-WATER 50 ML IV SCH ×3 (02:10→17:18)
[2017-08-24] MEDS ORDERED: SODIUM CHLORIDE 0.9% 1,000 ML IV ONE ×2 (05:42)
[2017-08-24 07:33] LABS: GLUCOSE,POINT OF CARE 130 MG/DL (70-110)
[2017-08-24] MEDS: AMIODARONE HCL 200 MG TABLET PO SCH (09:00)
[2017-08-24] MEDS: CARVEDILOL 3.125 MG TABLET PO SCH ×2 (09:00→21:00)
[2017-08-24] MEDS: -POST HEMODIALYSIS NOTE- MISC SCH (09:00)
[2017-08-24] MEDS: CHOLECALCIFEROL (VIT D3) 400 UNITS TABLET PO SCH (11:16)
[2017-08-24] MEDS: MULTIVITAMINS WITH MINERALS, THERAPEUTIC 15 ML UDCUP NG SCH (11:16)
[2017-08-24] MEDS: PIPERACILLIN SODIUM/TAZOBACTAM 0.75 GM in DEXTROSE 5%-WATER 50 ML IV PRN (11:17)
[2017-08-24] MEDS ORDERED: HEPARIN SODIUM,PORCINE 1,000 UNITS/ML VIAL IVP ONE (17:16)
[2017-08-24] MEDS ORDERED: MANNITOL 25%-12.5 GM/50 ML VIAL IVP ONE (17:16)
[2017-08-24 17:22] LABS: INR 1.3 (0.9-1.1); PROTHROMBIN TIME 13.8 SEC (9.4-11.6)
[2017-08-24] MEDS: ATORVASTATIN CALCIUM 20 MG TABLET PO SCH (21:45)
[2017-08-25] MEDS: METOCLOPRAMIDE HCL 5 MG/ML 2 ML VIAL IVP SCH ×4 (00:36→23:59)
[2017-08-25] MEDS: PIPERACILLIN SODIUM/TAZOBACTAM 2.25 GM in DEXTROSE 5%-WATER 50 ML IV SCH ×3 (02:28→18:04)
[2017-08-25] MEDS: ZOLPIDEM TARTRATE 5 MG TABLET PO PRN ×2 (02:28→21:49)
[2017-08-25 04:48] VITALS: BP 93/56
[2017-08-25 05:58] LABS: GLUCOSE,POINT OF CARE 131 MG/DL (70-110)
[2017-08-25 05:58] LABS: GLUCOSE,POINT OF CARE 109 MG/DL (70-110)
[2017-08-25 05:58] LABS: GLUCOSE,POINT OF CARE 106 MG/DL (70-110)
[2017-08-25 06:53] LABS: EOSINOPHILS # (AUTO) 0.15 K/uL (0.00-0.70); EOSINOPHILS % (AUTO) 0.85 % (1.0-6.0); HEMATOCRIT 27.8 % (36-46); HEMOGLOBIN 9.2 g/dL (12.0-16.0); LYMPHOCYTES # (AUTO) 0.5 K/uL (1.0-4.8); LYMPHOCYTES % (AUTO) 3.1 % (22.0-44.0); MEAN CORPUSCULAR HEMOGLOBIN 29.2 pg (26.0-34.0); MEAN CORPUSCULAR VOLUME 88 fL (80-100); MONOCYTES # (AUTO) 1.7 K/uL (0.1-1.0); MONOCYTES % (AUTO) 9.7 % (2.0-9.0); PLATELET COUNT (AUTO) 336 K/uL (150-450); RED BLOOD CELL COUNT(AUTO) 3.15 MIL/uL (4.00-5.20); RED CELL DISTRIBUTION WIDTH 16.5 % (11.5-14.5); WHITE BLOOD COUNT (AUTO) 17.3 K/uL (4.5-11.0)
[2017-08-25 06:57] LABS: NEUTROPHILS % (AUTO) 86.4 % (40.0-70.0)
[2017-08-25 07:05] LABS: CREATININE 3.6 mg/dL (0.60-1.30); MAGNESIUM 2.4 mg/dL (1.80-2.40); PHOSPHORUS 3.7 mg/dL (2.5-4.9); POTASSIUM 3.7 mmol/L (3.5-5.1)
[2017-08-25 07:46] VITALS: BP 103/66
[2017-08-25] MEDS: MULTIVITAMINS WITH MINERALS, THERAPEUTIC 15 ML UDCUP NG SCH (08:59)
[2017-08-25] MEDS: -POST HEMODIALYSIS NOTE- MISC SCH (09:00)
[2017-08-25] MEDS: CARVEDILOL 3.125 MG TABLET PO SCH ×2 (09:00→21:49)
[2017-08-25] MEDS: AMIODARONE HCL 200 MG TABLET PO SCH (09:00)
[2017-08-25] MEDS: CHOLECALCIFEROL (VIT D3) 400 UNITS TABLET PO SCH (09:00)
[2017-08-25 11:25] VITALS: BP 117/59
[2017-08-25] MEDS: MORPHINE SULFATE 2 MG/ML SYRINGE IVP PRN (14:58)
[2017-08-25 15:21] LABS: GLUCOSE,POINT OF CARE 115 MG/DL (70-110)
[2017-08-25 15:21] LABS: GLUCOSE,POINT OF CARE 139 MG/DL (70-110)
[2017-08-25 16:23] VITALS: BP 94/45
[2017-08-25 19:38] VITALS: BP 151/59
[2017-08-25] MEDS: ATORVASTATIN CALCIUM 20 MG TABLET PO SCH (21:49)
[2017-08-25 23:35] VITALS: BP 111/67
[2017-08-26] MEDS: PIPERACILLIN SODIUM/TAZOBACTAM 2.25 GM in DEXTROSE 5%-WATER 50 ML IV SCH ×3 (01:55→18:17)
[2017-08-26 04:23] VITALS: BP 135/77
[2017-08-26 07:12] VITALS: BP 122/76
[2017-08-26] MEDS: MULTIVITAMINS WITH MINERALS, THERAPEUTIC 15 ML UDCUP NG SCH (08:41)
[2017-08-26] MEDS: METOCLOPRAMIDE HCL 5 MG/ML 2 ML VIAL IVP SCH ×2 (08:41→16:59)
[2017-08-26] MEDS: CHOLECALCIFEROL (VIT D3) 400 UNITS TABLET PO SCH (08:41)
[2017-08-26] MEDS: EPOETIN ALFA 10,000 UNITS/ML 2 ML VIAL SQ SCH (08:42)
[2017-08-26] MEDS ORDERED: ERYTHROMYCIN 250 MG DR TABLET PO SCH ×2 (09:00→11:00)
[2017-08-26] MEDS: CARVEDILOL 3.125 MG TABLET PO SCH ×2 (09:00→23:57)
[2017-08-26 11:09] LABS: GLUCOSE,POINT OF CARE 110 MG/DL (70-110)
[2017-08-26 11:14] LABS: GLUCOSE,POINT OF CARE 114 MG/DL (70-110)
[2017-08-26 11:21] LABS: GLUCOSE,POINT OF CARE 99 MG/DL (70-110)
[2017-08-26 11:51] VITALS: BP 113/61
[2017-08-26] MEDS ORDERED: MANNITOL 25%-12.5 GM/50 ML VIAL IVP PRN (14:00)
[2017-08-26] MEDS ORDERED: HEPARIN SODIUM,PORCINE 1,000 UNITS/ML VIAL IVP ONE ×2 (14:00)
[2017-08-26] MEDS ORDERED: SODIUM CHLORIDE 0.9% 2,000 ML IV ONE (14:24)
[2017-08-26 15:28] LABS: GLUCOSE,POINT OF CARE 106 MG/DL (70-110)
[2017-08-26 15:31] VITALS: BP 98/54
[2017-08-26] MEDS: ERYTHROMYCIN E SUCC 200 MG/5 ML GT SCH ×3 (16:00→21:20)
[2017-08-26] MEDS: AMIODARONE HCL 200 MG TABLET PO SCH (16:57)
[2017-08-26] MEDS: PIPERACILLIN SODIUM/TAZOBACTAM 0.75 GM in DEXTROSE 5%-WATER 50 ML IV PRN (16:58)
[2017-08-26] MEDS: -POST HEMODIALYSIS NOTE- MISC SCH (16:58)
[2017-08-26 18:52] LABS: GLUCOSE,POINT OF CARE 133 MG/DL (70-110)
[2017-08-26 19:45] VITALS: BP 113/61
[2017-08-26] MEDS: ATORVASTATIN CALCIUM 20 MG TABLET PO SCH (21:18)
[2017-08-26 23:27] VITALS: BP 120/80
[2017-08-27] MEDS: METOCLOPRAMIDE HCL 5 MG/ML 2 ML VIAL IVP SCH ×3 (00:02→15:21)
[2017-08-27] MEDS: PIPERACILLIN SODIUM/TAZOBACTAM 2.25 GM in DEXTROSE 5%-WATER 50 ML IV SCH ×3 (02:03→17:03)
[2017-08-27 04:41] VITALS: BP 124/99
[2017-08-27] MEDS ORDERED: SODIUM CL IRRIG SOLN BOTTLE 0 ML IRRIG ONE (04:59)
[2017-08-27 07:27] VITALS: BP 114/75
[2017-08-27 07:48] LABS: GLUCOSE,POINT OF CARE 107 MG/DL (70-110)
[2017-08-27 07:48] LABS: GLUCOSE,POINT OF CARE 124 MG/DL (70-110)
[2017-08-27 07:57] LABS: GLUCOSE,POINT OF CARE 88 MG/DL (70-110)
[2017-08-27] MEDS: ERYTHROMYCIN E SUCC 200 MG/5 ML GT SCH ×3 (08:55→20:39)
[2017-08-27] MEDS: MULTIVITAMINS WITH MINERALS, THERAPEUTIC 15 ML UDCUP NG SCH (08:56)
[2017-08-27] MEDS: AMIODARONE HCL 200 MG TABLET PO SCH (08:56)
[2017-08-27] MEDS: CHOLECALCIFEROL (VIT D3) 400 UNITS TABLET PO SCH (08:56)
[2017-08-27] MEDS: -POST HEMODIALYSIS NOTE- MISC SCH (08:56)
[2017-08-27] MEDS: CARVEDILOL 3.125 MG TABLET PO SCH ×2 (08:56→20:40)
[2017-08-27 11:30] VITALS: BP 121/73
[2017-08-27] MEDS ORDERED: SODIUM CHLORIDE 0.9% 100 ML ONE (15:11)
[2017-08-27 15:38] VITALS: BP 122/62
[2017-08-27] MEDS ORDERED: HEPARIN SODIUM,PORCINE 1,000 UNITS/ML VIAL IVP ONE (18:23)
[2017-08-27] MEDS ORDERED: MANNITOL 25%-12.5 GM/50 ML VIAL IVP ONE (18:23)
[2017-08-27 19:18] VITALS: BP 119/70
[2017-08-27 19:31] LABS: GLUCOSE,POINT OF CARE 94 MG/DL (70-110)
[2017-08-27] MEDS: ATORVASTATIN CALCIUM 20 MG TABLET PO SCH (20:39)
[2017-08-27 23:45] VITALS: BP 114/67
[2017-08-28] MEDS: METOCLOPRAMIDE HCL 5 MG/ML 2 ML VIAL IVP SCH ×4 (00:19→23:29)
[2017-08-28] MEDS: PIPERACILLIN SODIUM/TAZOBACTAM 2.25 GM in DEXTROSE 5%-WATER 50 ML IV SCH ×3 (01:59→17:01)
[2017-08-28 04:25] VITALS: BP 103/70
[2017-08-28 04:28] LABS: GLUCOSE,POINT OF CARE 127 MG/DL (70-110)
[2017-08-28 04:28] LABS: GLUCOSE,POINT OF CARE 126 MG/DL (70-110)
[2017-08-28 06:35] LABS: CREATININE 4.44 mg/dL (0.60-1.30); MAGNESIUM 2.6 mg/dL (1.80-2.40); PHOSPHORUS 3.3 mg/dL (2.5-4.9); POTASSIUM 3.2 mmol/L (3.5-5.1)
[2017-08-28 07:07] LABS: GLUCOSE,POINT OF CARE 109 MG/DL (70-110)
[2017-08-28 07:16] VITALS: BP 125/74
[2017-08-28] MEDS: AMIODARONE HCL 200 MG TABLET PO SCH (07:58)
[2017-08-28] MEDS: CARVEDILOL 3.125 MG TABLET PO SCH ×2 (07:58→20:32)
[2017-08-28] MEDS: CHOLECALCIFEROL (VIT D3) 400 UNITS TABLET PO SCH (07:58)
[2017-08-28] MEDS: MULTIVITAMINS WITH MINERALS, THERAPEUTIC 15 ML UDCUP NG SCH (07:58)
[2017-08-28] MEDS: ERYTHROMYCIN E SUCC 200 MG/5 ML GT SCH ×3 (07:58→20:32)
[2017-08-28] MEDS: -POST HEMODIALYSIS NOTE- MISC SCH (09:00)
[2017-08-28 11:26] VITALS: BP 114/53
[2017-08-28 11:57] LABS: GLUCOSE,POINT OF CARE 102 MG/DL (70-110)
[2017-08-28] MEDS ORDERED: POTASSIUM CHLORIDE 10 MEQ ER TABLET PO ONE (12:45)
[2017-08-28 16:19] VITALS: BP 113/66
[2017-08-28 19:23] VITALS: BP 101/57
[2017-08-28] MEDS: ATORVASTATIN CALCIUM 20 MG TABLET PO SCH (20:32)
[2017-08-28 20:33] LABS: GLUCOSE,POINT OF CARE 118 MG/DL (70-110)
[2017-08-28 23:33] VITALS: BP 106/58
[2017-08-29] MEDS: PIPERACILLIN SODIUM/TAZOBACTAM 2.25 GM in DEXTROSE 5%-WATER 50 ML IV SCH (02:25)
[2017-08-29 04:27] VITALS: BP 103/53
[2017-08-29 06:12] LABS: EOSINOPHILS # (AUTO) 0.26 K/uL (0.00-0.70); EOSINOPHILS % (AUTO) 1.99 % (1.0-6.0); HEMATOCRIT 24.8 % (36-46); HEMOGLOBIN 8.3 g/dL (12.0-16.0); LYMPHOCYTES # (AUTO) 0.6 K/uL (1.0-4.8); LYMPHOCYTES % (AUTO) 4.5 % (22.0-44.0); MEAN CORPUSCULAR HEMOGLOBIN 29.3 pg (26.0-34.0); MEAN CORPUSCULAR HGB CONC 33.6 G/dL (31.0-37.0); MEAN CORPUSCULAR VOLUME 87 fL (80-100); MONOCYTES # (AUTO) 1.2 K/uL (0.1-1.0); MONOCYTES % (AUTO) 9.6 % (2.0-9.0); NEUTROPHILS # (AUTO) 10.8 K/uL (1.8-7.7); NEUTROPHILS % (AUTO) 83.9 % (40.0-70.0); PLATELET COUNT (AUTO) 275 K/uL (150-450); RED BLOOD CELL COUNT(AUTO) 2.85 MIL/uL (4.00-5.20); RED CELL DISTRIBUTION WIDTH 17.6 % (11.5-14.5); WHITE BLOOD COUNT (AUTO) 12.9 K/uL (4.5-11.0)
[2017-08-29 06:18] LABS: CALCIUM, TOTAL 8.9 mg/dL (8.8-10.5); CREATININE 5.32 mg/dL (0.60-1.30); MAGNESIUM 2.8 mg/dL (1.80-2.40); PHOSPHORUS 4.4 mg/dL (2.5-4.9); POTASSIUM 3.5 mmol/L (3.5-5.1)
[2017-08-29 07:00] VITALS: BP 130/78
[2017-08-29 07:11] LABS: RBC MORPHOLOGY COMMENT ABNORMAL RBC MORPH
[2017-08-29] MEDS: CARVEDILOL 3.125 MG TABLET PO SCH (09:00)
[2017-08-29] MEDS: EPOETIN ALFA 10,000 UNITS/ML 2 ML VIAL SQ SCH (09:03)
[2017-08-29] MEDS: METOCLOPRAMIDE HCL 5 MG/ML 2 ML VIAL IVP SCH ×2 (09:03→15:32)
[2017-08-29] MEDS: MULTIVITAMINS WITH MINERALS, THERAPEUTIC 15 ML UDCUP NG SCH (09:04)
[2017-08-29] MEDS: CHOLECALCIFEROL (VIT D3) 400 UNITS TABLET PO SCH (09:04)
[2017-08-29] MEDS: ERYTHROMYCIN E SUCC 200 MG/5 ML GT SCH ×3 (09:04→20:37)
[2017-08-29 11:14] VITALS: BP 154/80
[2017-08-29] MEDS ORDERED: SODIUM CHLORIDE 0.9% 1,000 ML IV ONE (11:14)
[2017-08-29] MEDS: INSULIN REGULAR, HUMAN 100 UNITS/ML SQ PRN ×2 (12:07→18:26)
[2017-08-29] MEDS: -POST HEMODIALYSIS NOTE- MISC SCH (12:11)
[2017-08-29] MEDS ORDERED: MANNITOL 25%-12.5 GM/50 ML VIAL IVP PRN (13:45)
[2017-08-29 15:03] VITALS: BP 114/56
[2017-08-29] MEDS ORDERED: HEPARIN SODIUM,PORCINE 1,000 UNITS/ML VIAL IVP ONE ×3 (15:30→17:20)
[2017-08-29] MEDS: AMIODARONE HCL 200 MG TABLET PO SCH (15:32)
[2017-08-29] MEDS ORDERED: ZOLPIDEM TARTRATE 5 MG TABLET GT PRN (16:30)
[2017-08-29] MEDS ORDERED: MAGNESIUM HYDROXIDE SUSPENSION 30 ML UDCUP GT PRN (17:45)
[2017-08-29 19:20] VITALS: BP 138/72
[2017-08-29 20:03] LABS: GLUCOSE,POINT OF CARE 87 MG/DL (70-110)
[2017-08-29] MEDS: CARVEDILOL 3.125 MG TABLET GT SCH (20:35)
[2017-08-29] MEDS: ATORVASTATIN CALCIUM 20 MG TABLET GT SCH (20:35)
[2017-08-29] MEDS ORDERED: LACTULOSE 20 GM/30 ML SOLUTION UDCUP GT PRN (21:15)
[2017-08-29 23:16] VITALS: BP 94/56
[2017-08-30] MEDS: METOCLOPRAMIDE HCL 5 MG/ML 2 ML VIAL IVP SCH ×3 (00:35→15:23)
[2017-08-30 04:08] LABS: GLUCOSE,POINT OF CARE 119 MG/DL (70-110)
[2017-08-30 04:17] LABS: GLUCOSE,POINT OF CARE 108 MG/DL (70-110)
[2017-08-30 04:18] LABS: GLUCOSE,POINT OF CARE 97 MG/DL (70-110)
[2017-08-30 04:53] VITALS: BP 112/64
[2017-08-30 07:19] VITALS: BP 127/77
[2017-08-30] MEDS: MULTIVITAMINS WITH MINERALS, THERAPEUTIC 15 ML UDCUP GT SCH (08:47)
[2017-08-30] MEDS: AMIODARONE HCL 200 MG TABLET GT SCH (08:47)
[2017-08-30] MEDS: CHOLECALCIFEROL (VIT D3) 400 UNITS TABLET GT SCH (08:48)
[2017-08-30] MEDS: CARVEDILOL 3.125 MG TABLET GT SCH ×2 (08:48→20:11)
[2017-08-30] MEDS: ERYTHROMYCIN E SUCC 200 MG/5 ML GT SCH ×3 (08:48→20:36)
[2017-08-30 11:20] VITALS: BP 94/60
[2017-08-30] MEDS ORDERED: EPOE10003 SQ (13:12)
[2017-08-30] MEDS ORDERED: ERYT200S16 GT (13:14)
[2017-08-30] MEDS ORDERED: METO5TAB95 IVP (13:15)
[2017-08-30] MEDS ORDERED: MULT9LIQ6 GT (13:17)
[2017-08-30] MEDS ORDERED: HYDR20I IM (13:18)
[2017-08-30] MEDS ORDERED: INSNOV SQ (13:19)
[2017-08-30] MEDS ORDERED: LACT30L PO (13:20)
[2017-08-30] MEDS ORDERED: ONDA4 PO (13:21)
[2017-08-30] MEDS ORDERED: MORP4CAR IVP (13:23)
[2017-08-30 15:34] VITALS: BP 96/62
[2017-08-30] MEDS ORDERED: 0.9% SODIUM CHLORIDE 5 ML NEB SOLUTION NEB ONE (15:48)
[2017-08-30 20:03] VITALS: BP 103/50
[2017-08-30] MEDS: ATORVASTATIN CALCIUM 20 MG TABLET GT SCH (20:36)
[2017-08-31] VITALS: BP 95/56
[2017-08-31] MEDS: METOCLOPRAMIDE HCL 5 MG/ML 2 ML VIAL IVP SCH ×3 (00:20→16:08)
[2017-08-31 02:33] LABS: GLUCOSE,POINT OF CARE 108 MG/DL (70-110)
[2017-08-31 02:33] LABS: GLUCOSE,POINT OF CARE 104 MG/DL (70-110)
[2017-08-31 02:38] LABS: GLUCOSE,POINT OF CARE 125 MG/DL (70-110)
[2017-08-31 04:04] VITALS: BP 102/63
[2017-08-31 04:53] LABS: GLUCOSE,POINT OF CARE 118 MG/DL (70-110)
[2017-08-31] MEDS ORDERED: 0.9% SODIUM CHLORIDE 15 ML NEB SOLUTION NEB ONE (06:55)
[2017-08-31 07:22] VITALS: BP 151/73
[2017-08-31] MEDS: ERYTHROMYCIN E SUCC 200 MG/5 ML GT SCH ×2 (08:29→16:08)
[2017-08-31] MEDS: CHOLECALCIFEROL (VIT D3) 400 UNITS TABLET GT SCH (08:29)
[2017-08-31] MEDS: AMIODARONE HCL 200 MG TABLET GT SCH (08:29)
[2017-08-31] MEDS: MULTIVITAMINS WITH MINERALS, THERAPEUTIC 15 ML UDCUP GT SCH (08:29)
[2017-08-31] MEDS: CARVEDILOL 3.125 MG TABLET GT SCH (09:00)
[2017-08-31] MEDS ORDERED: EPOETIN ALFA 10,000 UNITS/ML VIAL SQ SCH (09:00)
[2017-08-31] MEDS ORDERED: SODIUM CHLORIDE 0.9% 250 ML IV ONE (10:44)
[2017-08-31] MEDS ORDERED: SODIUM CHLORIDE 0.9% 1,000 ML IV ONE (10:46)
[2017-08-31 11:02] VITALS: BP 125/70
[2017-08-31] MEDS ORDERED: HEPARIN SODIUM,PORCINE 1,000 UNITS/ML VIAL IVP ONE ×3 (12:00→14:45)
[2017-08-31 13:37] LABS: GLUCOSE,POINT OF CARE 108 MG/DL (70-110)
[2017-08-31] MEDS ORDERED: MANNITOL 25%-12.5 GM/50 ML VIAL IVP PRN (14:45)
[2017-08-31 15:03] VITALS: BP 123/62
[2017-08-31 20:07] LABS: GLUCOSE,POINT OF CARE 106 MG/DL (70-110)
[2017-08-31 20:12] LABS: GLUCOSE,POINT OF CARE 108 MG/DL (70-110)
== END 2017-08-31 19:00 | DRG 4 ==
LOC: EMS 23:12 → 5N 08-07 02:10 → ICU 08-08 02:05 → 5N 08-23 19:00 → 5S 08-29 02:00
PROVIDERS: ADMIT Family Medicine; ATTEND Family Medicine
PROC: 5A1955Z Respiratory Ventilation, Greater than 96 Consecutive Hours (ICD-10-PCS; principal; 2017-08-08)
PROC: 0BH17EZ Insertion of Endotracheal Airway into Trachea, Via Natural or Artificial Opening (ICD-10-PCS; 2017-08-08)
PROC: 4B02XTZ Measurement of Cardiac Defibrillator, External Approach (ICD-10-PCS; 2017-08-08)
PROC: 0B110F4 Bypass Trachea to Cutaneous with Tracheostomy Device, Open Approach (ICD-10-PCS; 2017-08-22)
PROC: 0DH64UZ Insertion of Feeding Device into Stomach, Percutaneous Endoscopic Approach (ICD-10-PCS; 2017-08-22)
PROC: 0JHD3XZ Insertion of Tunneled Vascular Access Device into Right Upper Arm Subcutaneous Tissue and Fascia, Percutaneous Approach (ICD-10-PCS; 2017-08-23)
PROC: 05HM33Z Insertion of Infusion Device into Right Internal Jugular Vein, Percutaneous Approach (ICD-10-PCS; 2017-08-23)
PROC: B543ZZA Ultrasonography of Right Jugular Veins, Guidance (ICD-10-PCS; 2017-08-23)
PROC: 5A1D70Z Performance of Urinary Filtration, Intermittent, Less than 6 Hours Per Day (ICD-10-PCS; 2017-08-24)
PROC: 5A1D70Z Performance of Urinary Filtration, Intermittent, Less than 6 Hours Per Day (ICD-10-PCS; 2017-08-26)
PROC: 5A1D70Z Performance of Urinary Filtration, Intermittent, Less than 6 Hours Per Day (ICD-10-PCS; 2017-08-29)
PROC: 5A1D70Z Performance of Urinary Filtration, Intermittent, Less than 6 Hours Per Day (ICD-10-PCS; 2017-08-31)
DX: J96.20 Acute and chronic respiratory failure, unspecified whether with hypoxia or hypercapnia (principal); N17.0 Acute kidney failure with tubular necrosis; R57.9 Shock, unspecified; I46.9 Cardiac arrest, cause unspecified; J15.6 Pneumonia due to other Gram-negative bacteria; I50.23 Acute on chronic systolic (congestive) heart failure; G93.1 Anoxic brain damage, not elsewhere classified; R13.10 Dysphagia, unspecified; E46 Unspecified protein-calorie malnutrition; E87.3 Alkalosis; I13.0 Hypertensive heart and chronic kidney disease with heart failure and stage 1 through stage 4 chronic kidney disease, or unspecified chronic kidney disease; N18.6 End stage renal disease; E87.0 Hyperosmolality and hypernatremia; I42.0 Dilated cardiomyopathy; I50.22 Chronic systolic (congestive) heart failure; J44.0 Chronic obstructive pulmonary disease with (acute) lower respiratory infection; Z99.11 Dependence on respirator [ventilator] status; N18.4 Chronic kidney disease, stage 4 (severe); Z68.1 Body mass index [BMI] 19.9 or less, adult; E87.5 Hyperkalemia; R80.9 Proteinuria, unspecified; K59.00 Constipation, unspecified; R34 Anuria and oliguria; R79.1 Abnormal coagulation profile; I25.5 Ischemic cardiomyopathy; I25.10 Atherosclerotic heart disease of native coronary artery without angina pectoris; I25.2 Old myocardial infarction; E87.6 Hypokalemia; D63.8 Anemia in other chronic diseases classified elsewhere; I12.9 Hypertensive chronic kidney disease with stage 1 through stage 4 chronic kidney disease, or unspecified chronic kidney disease; I48.0 Paroxysmal atrial fibrillation; D63.1 Anemia in chronic kidney disease; Z51.5 Encounter for palliative care; Z86.11 Personal history of tuberculosis; Z90.2 Acquired absence of lung [part of]; Z95.810 Presence of automatic (implantable) cardiac defibrillator; Z99.2 Dependence on renal dialysis; Z79.01 Long term (current) use of anticoagulants; Z79.51 Long term (current) use of inhaled steroids; Z79.899 Other long term (current) drug therapy; Z90.710 Acquired absence of both cervix and uterus
CPT/HCPCS: 36245; 36561; 70450; 76770; 76937; 82570; 82805; 82962; 83735; 84100; 84132; 84145; 84300; 84540; 85007; 87040; 87070; 87081; 87205; 87324; 87340; 87449; 90935; 92950; 93005; 93306; 93971; 94002; 94003; 94640; 94644; 96374; 97163; 97530; 99291; J0171; J0330; J0360; J0690; J0885; J1644; J2150; J2250; J2270; J2310; J2370; J2405; J2543; J2704; J2765; J3010; J3480; J3490; J7030; J7040; J7050; J7060; P9047